=== PATIENT | male | born 1945 | race Caucasian/White ===

== ENCOUNTER → 2017-10-18 08:31 | Outpatient (CLI) | payer MEDICARE, OTHER, SELFPAY ==
[2017-10-18 13:16] LABS: ALB/GLOB Ratio 0.9 RATIO (0.9-2.4); AST(SGOT) 23 U/L (15-37); Alanine Aminotransfer ALT/SGPT 25 U/L (16-61); Albumin, Serum 3.6 g/dL (3.2-5.0); Alkaline Phosphatase 54 U/L (45-117); Anion Gap 9 (5-15); BUN 20 mg/dL (7-18); BUN/Creat Ratio 15.9 RATIO (10-20); Calcium,Total 8.7 mg/dL (8.5-10.1); Chloride 105 mmol/L (98-107); Cholesterol 142 mg/dL (200); Creatinine, Serum 1.26 mg/dL (0.70-1.30); EST Glomerular Filtration Rate 60 mL/min (>60); Est Glom Filt Rate - Afr Amer 73 mL/min (>60); Globulin 3.9 g/dL (2.2-4.2); Glucose 143 mg/dL (74-106); High Density Lipoprotein 47 mg/dL; Potassium 4.4 mmol/L (3.5-5.1); Protein, Total 7.5 g/dL (6.4-8.2); Sodium Level 140 mmol/L (136-145); T4 Free Direct 1.18 ng/dL (0.76-1.46); Thyroid Stim Hormone (TSH) 2.69 uIU/mL (0.358-3.74); Triglycerides 115 mg/dL; Very Low Density Lipoprotein 23 mg/dL (5-40)
== END ==
PROVIDERS: Family Provider Family Medicine; PCP Family Medicine; Visit Provider Family Medicine
DX: E03.9 Hypothyroidism, unspecified (principal)
CPT/HCPCS: 36415; 80053; 80061; 84439; 84443

== ENCOUNTER → 2018-01-18 09:01 | Outpatient (CLI) | payer MEDICARE, OTHER, SELFPAY ==
[2018-01-18 10:42] LABS: AST(SGOT) 22 U/L (15-37); Alanine Aminotransfer ALT/SGPT 25 U/L (16-61); Albumin, Serum 3.7 g/dL (3.2-5.0); Alkaline Phosphatase 55 U/L (45-117); Anion Gap 7 (5-15); BUN 25 mg/dL (7-18); Calcium,Total 8.5 mg/dL (8.5-10.1); Chloride 108 mmol/L (98-107); Cholesterol 140 mg/dL (200); Creatinine, Serum 1.47 mg/dL (0.70-1.30); EST Glomerular Filtration Rate 50 mL/min (>60); Est Glom Filt Rate - Afr Amer 61 mL/min (>60); Globulin 3.7 g/dL (2.2-4.2); Glucose 150 mg/dL (74-106); High Density Lipoprotein 42 mg/dL; Potassium 4.9 mmol/L (3.5-5.1); Protein, Total 7.4 g/dL (6.4-8.2); Sodium Level 142 mmol/L (136-145); Thyroid Stim Hormone (TSH) 3.17 uIU/mL (0.358-3.74); Triglycerides 117 mg/dL; Uric Acid 8.5 mg/dL (3.5-7.2); Very Low Density Lipoprotein 23 mg/dL (5-40)
== END ==
PROVIDERS: Family Provider Family Medicine; PCP Family Medicine; Visit Provider Family Medicine
DX: E78.2 Mixed hyperlipidemia (principal); E03.9 Hypothyroidism, unspecified; M25.50 Pain in unspecified joint
CPT/HCPCS: 36415; 80053; 80061; 84439; 84443; 84550

== ENCOUNTER → 2018-01-25 10:36 | Outpatient (CLI) | payer MEDICARE, OTHER, SELFPAY ==
--- NOTE | 2018-01-25 10:40 | RAD_ITS ---
STUDY: X-RAY CHEST REASON FOR EXAM: Male, 72 years old. Basilar crackles TECHNIQUE: Frontal and lateral views of the chest. COMPARISON: 02/19/2015. FINDINGS: The lungs are clear and expanded. There is no demonstrated pleural abnormality. Normal size heart. Normal mediastinum and kwasi. Normal visualized pulmonary arteries. Normal visualized aortic arch and descending thoracic aorta. There are diffuse degenerative changes of the visualized thoracic spine. Normal visualized ribs, clavicles, and shoulders. There is no demonstrated abnormality of the visualized soft tissue structures of the upper abdomen. RAD/Chest PA and Lateral IMPRESSION: No acute cardiopulmonary disease. Electronically Signed: Bill Gusman DO at 7:44 EDT , Service support ,
== END ==
PROVIDERS: Family Provider Family Medicine; PCP Family Medicine; Visit Provider Family Medicine
DX: R09.89 Other specified symptoms and signs involving the circulatory and respiratory systems (principal)
CPT/HCPCS: 71046

== ENCOUNTER → 2018-02-01 07:31 | Outpatient (CLI) | payer MEDICARE, OTHER, SELFPAY ==
--- NOTE | 2018-02-01 07:32 | ECHOD_ITS ---
Reason For Study: MURMUR Procedure This was a 2D Doppler, Color Flow transthoracic echocardiogram. The exam was of poor technical quality due to body habitus. The study was technically difficult. Contrast injection was performed. Exam performed in department. Left Ventricle Normal LV size. Left ventricular systolic function is normal. The estimated ejection fraction is 60 %. There is evidence of diastolic dysfunction. No regional wall motion abnormalities noted. Right Ventricle Normal RV size. Normal systolic function. Atria The left atrium is mildly enlarged. Normal right atrium. No doppler evidence for ASD. Mitral Valve There is no mitral annular calcification. Normal mitral valve. Trivial mitral valve insufficiency. Tricuspid Valve Normal tricuspid valve. Trivial tricuspid valve insufficiency. Right ventricular systolic pressure estimated to be 27 mmHg. Aortic Valve Trisinus/trileaflet aortic valve. Mild diffuse aortic valve thickening. Mild diffuse aortic valve calcification. Mild aortic stenosis. Pulmonic Valve The pulmonic valve is not well visualized. Trivial pulmonic valve insufficiency. Great Vessels Normal sized aortic root. Pericardium/Pleural No pericardial effusion. Medication 22 gauge I.V. with prn adaptor inserted into right arm. Diluted definity 2.0ml given slow IV push to enhance endocardial definition. MMode/2D Measurements & Calculations LVIDd: 4.1 cm IVSd: 1.0 cm LVOT diam: 2.2 cm LVIDs: 2.7 cm LVPWd: 1.1 cm LVOT area: 3.7 cm2 FS: 34.9 % Ao root diam: 3.6 cm LAV(MOD-bp): 56.4 ml LA A4 area: 20.9 cm2 LAV(MOD-bp) Indexed: 22.2 ml/m2 LAV(MOD-sp2): 47.1 ml LAV(MOD-sp4): 59.3 ml RA A4 area: 16.8 cm2 Doppler Measurements & Calculations MV E max tommy: 98.3 cm/sec Lat Peak E' Tommy: 7.7 cm/sec Med Peak E' Tommy: 8.0 cm/sec MV A max tommy: 110.4 cm/sec E/E' lat: 12.7 E/E' med: 12.3 MV E/A: 0.89 Ao V2 max: 235.8 cm/sec LV V1 max: 103.8 cm/sec SV(LVOT): 86.4 ml Ao max P.2 mmHg LV V1 max P.3 mmHg Ao V2 mean: 150.8 cm/sec LV V1 mean P.2 mmHg Ao mean P.3 mmHg LV V1 mean: 71.4 cm/sec Ao V2 VTI: 43.9 cm LV V1 VTI: 23.5 cm NATI(I,D): 2.0 cm2 NATI(V,D): 1.6 cm2 PA V2 max: 117.6 cm/sec TR max tommy: 271.3 cm/sec TR max P.7 mmHg Interpretation Summary The study was technically difficult. Contrast injection was performed. Left ventricular systolic function is normal. The estimated ejection fraction is 60 %. The left atrium is mildly enlarged. Trivial mitral valve insufficiency. Trivial tricuspid valve insufficiency. Mild aortic stenosis. Trivial pulmonic valve insufficiency. Right ventricular systolic pressure estimated to be 27 mmHg. There is evidence of diastolic dysfunction. Ordering Physician: David Moura Referring Physician: David Moura Performed By: Theresa Bhatia, REYMUNDO, RVT
== END ==
PROVIDERS: Family Provider Family Medicine; PCP Family Medicine; Visit Provider Family Medicine
DX: R01.1 Cardiac murmur, unspecified (principal)
CPT/HCPCS: 93306; Q9957; A4216; C8929

== ENCOUNTER → 2018-07-30 11:54 | Outpatient (CLI) | payer MEDICARE, OTHER, SELFPAY ==
--- NOTE | 2018-07-30 12:04 | RAD_ITS ---
STUDY: X-RAY - LUMBAR SPINE REASON FOR EXAM: Male, 72 years old. Pain in the lower back with history of degenerative disc disease, back surgery in March 2017 TECHNIQUE: 5 view(s) of the lumbar spine were obtained. COMPARISON: 11/07/2016 FINDINGS: Normal lumbar lordosis. There is no substantial scoliosis. There is a normal alignment of the vertebrae. There is diffuse demineralization with multi-level endplate spondylosis. Disc space narrowing at L5-L4 and L5-S1 similar since the prior study. Moderate facet arthropathy at L3-L4, L4-L5 and L5-S1 is also similar. Chronic compression deformity of L1 is stable. There is no demonstrated spondylolysis of the pars interarticulares. There is atherosclerotic calcification of the abdominal aorta without a demonstrated aneurysm. Bilateral hip replacements noted. RAD/L/S Spine Min 4 Views IMPRESSION: 1. Stable exam. 2. Similar degenerative disc disease and facet arthropathy. 3. Stable L1 compression fracture, chronic. Electronically Signed: Dylan Salamanca MD at 19:22 EST , Service support ,
[2018-07-30 14:46] LABS: AST(SGOT) 24 U/L (15-37); Alanine Aminotransfer ALT/SGPT 27 U/L (16-61); Albumin, Serum 3.9 g/dL (3.2-5.0); Alkaline Phosphatase 66 U/L (45-117); Anion Gap 12 (5-15); BUN 18 mg/dL (7-18); BUN/Creat Ratio 13.4 RATIO (10-20); Chloride 105 mmol/L (98-107); Creatinine, Serum 1.34 mg/dL (0.70-1.30); EST Glomerular Filtration Rate 56 mL/min (>60); Est Glom Filt Rate - Afr Amer 67 mL/min (>60); Globulin 3.9 g/dL (2.2-4.2); Glucose 144 mg/dL (74-106); PSA,Total - Annual Screen 1.22 ng/mL (0.00-4.00); Potassium 4.3 mmol/L (3.5-5.1); Protein, Total 7.8 g/dL (6.4-8.2); Sodium Level 140 mmol/L (136-145); Thyroid Stim Hormone (TSH) 3.28 uIU/mL (0.358-3.74)
== END ==
PROVIDERS: Family Provider Family Medicine; PCP Family Medicine; Referring Provider Family Medicine; Visit Provider Family Medicine
DX: M51.36 Other intervertebral disc degeneration, lumbar region (principal); E11.9 Type 2 diabetes mellitus without complications; Z12.5 Encounter for screening for malignant neoplasm of prostate
CPT/HCPCS: 36415; 72110; 80053; 84153; 84443; G0103

== ENCOUNTER → 2018-11-25 09:24 | Outpatient (CLI) | payer MEDICARE, SELFPAY ==
[2018-11-25 12:33] LABS: Absolute Lymphocyte Count 1.18 X10^3/ul (0.83-4.51); Absolute Neutrophil Count 3.5 X10^3/uL (2.0-7.7); Basophil# 0.01 X10^3/uL; Basophil% 0.2 % (0-1); Eosinophil# 0.04 X10^3/uL; Eosinophils% 0.8 % (0-5); Hemoglobin 12.9 g/dl (13.0-16.5); Lymphocyte # 1.18 X10^3/ul (4.0); Lymphocyte % 22.2 % (19-41); Mean Corp Hgb Conc 31.5 g/gl (32-36); Mean Corpuscular Hgb 30.7 pg (27.0-32.0); Mean Corpuscular Volume 97.6 fL (80-94); Mean Platelet Vol. 11.1 fl (6.2-12.0); Monocyte# 0.53 X10^3/uL; Neutrophil # 3.54 X10^3/uL (2.7-7.7); Neutrophil % 66.6 % (47-70); Platelet Count 164 K/mm3 (150-450); RBC Distribution Width CV 14.8 % (11.6-14.6); RBC Distribution Width SD 51.1 fl (35.1-43.9); White Blood Count 5.3 K/mm3 (4.4-11.0)
[2018-11-25 12:51] LABS: POSITIVE COUNT NO; POSITIVE DIFFERENTIAL NO; POSITIVE MORPHOLOGY NO
[2018-11-25 12:53] LABS: ALB/GLOB Ratio 1.1 RATIO (0.9-2.4); AST(SGOT) 24 U/L (15-37); Alanine Aminotransfer ALT/SGPT 22 U/L (16-61); Albumin, Serum 3.9 g/dL (3.2-5.0); Alkaline Phosphatase 58 U/L (45-117); Anion Gap 4 (5-15); BUN 27 mg/dL (7-18); BUN/Creat Ratio 18.5 RATIO (10-20); Calcium,Total 8.8 mg/dL (8.5-10.1); Chloride 109 mmol/L (98-107); Creatinine, Serum 1.46 mg/dL (0.70-1.30); EST Glomerular Filtration Rate 50 mL/min (>60); Est Glom Filt Rate - Afr Amer 61 mL/min (>60); Globulin 3.5 g/dL (2.2-4.2); Glucose 183 mg/dL (74-106); Potassium 4.2 mmol/L (3.5-5.1); Protein, Total 7.4 g/dL (6.4-8.2); Sodium Level 138 mmol/L (136-145); Thyroid Stim Hormone (TSH) 4.06 uIU/mL (0.358-3.74); Uric Acid 8.9 mg/dL (3.5-7.2)
== END ==
PROVIDERS: Family Provider Family Medicine; PCP Family Medicine; Visit Provider Family Medicine
DX: E03.9 Hypothyroidism, unspecified (principal); L74.8 Other eccrine sweat disorders; E11.9 Type 2 diabetes mellitus without complications; M10.9 Gout, unspecified
CPT/HCPCS: 36415; 80053; 84443; 84550; 85025

== ENCOUNTER → 2018-12-19 | Outpatient (CLI) | payer MEDICARE, SELFPAY | END | disposition home or self-care (01) | LOC: LABSPEC 12:30 | PROVIDERS: Family Provider Family Medicine; PCP Family Medicine; Referring Provider Dermatology; Visit Provider Dermatology | DX: L08.9 Local infection of the skin and subcutaneous tissue, unspecified (principal) | CPT/HCPCS: 87070; 87077; 87186; 87205 ==

== ENCOUNTER → 2019-02-11 | Outpatient (CLI) | payer MEDICARE, OTHER, SELFPAY ==
--- NOTE | 2019-02-11 14:28 | RAD_ITS ---
STUDY: X-RAY - UNILATERAL RIBS ( LEFT ) WITH CHEST REASON FOR EXAM: Male, 73 years old. Left-sided chest pain after a fall TECHNIQUE - RIBS: 5 view(s) of the ribs. TECHNIQUE - CHEST: Single PA view of the chest. COMPARISON: None. FINDINGS - RIBS: Acute minimally displaced left lateral seventh eighth and ninth rib fractures without pleural thickening or pneumothorax. FINDINGS - CHEST: Stable elevation of left hemidiaphragm. There are interstitial fibrotic changes of the lungs. There is no demonstrated pleural abnormality. Normal size heart. Normal mediastinum and kwasi. Normal visualized pulmonary arteries. Normal visualized aortic arch and descending thoracic aorta. There are diffuse degenerative changes of the visualized thoracic spine. Normal visualized ribs, clavicles, and shoulders. There is no demonstrated abnormality of the visualized soft tissue structures of the upper abdomen. RAD/Ribs Uni Min 3V w/PA Chest IMPRESSION: RIBS: Acute minimally displaced left lateral seventh, eighth, and ninth rib fractures with pleural thickening or pneumothorax CHEST: Degenerative changes, as described above. No demonstrated acute cardiopulmonary process. Electronically Signed: Tung Mota MD at 12:21 EDT , Service support ,
== END | disposition home or self-care (01) ==
LOC: MTRAD 14:26
PROVIDERS: Family Provider Family Medicine; PCP Family Medicine; Referring Provider Family Medicine; Visit Provider Family Medicine
DX: R07.81 Pleurodynia (principal)
CPT/HCPCS: 71101

== ENCOUNTER → 2019-05-29 | Outpatient (CLI) | payer MEDICARE, SELFPAY ==
[2019-05-29 11:09] LABS: ALB/GLOB Ratio 0.9 RATIO (0.9-2.4); AST(SGOT) 23 U/L (15-37); Alanine Aminotransfer ALT/SGPT 23 U/L (16-61); Albumin, Serum 3.6 g/dL (3.2-5.0); Alkaline Phosphatase 72 U/L (45-117); Anion Gap 9 (5-15); BUN 17 mg/dL (7-18); BUN/Creat Ratio 13.1 RATIO (10-20); Chloride 110 mmol/L (98-107); EST Glomerular Filtration Rate 58 mL/min (>60); Est Glom Filt Rate - Afr Amer 70 mL/min (>60); Globulin 3.9 g/dL (2.2-4.2); Glucose 158 mg/dL (74-106); Potassium 4.2 mmol/L (3.5-5.1); Protein, Total 7.5 g/dL (6.4-8.2); Sodium Level 142 mmol/L (136-145); Thyroid Stim Hormone (TSH) 0.65 uIU/mL (0.358-3.74); Uric Acid 6.2 mg/dL (3.5-7.2)
== END | disposition home or self-care (01) ==
LOC: MFPLAB 09:20
PROVIDERS: Family Provider Family Medicine; PCP Family Medicine; Referring Provider Family Medicine; Visit Provider Family Medicine
DX: E11.9 Type 2 diabetes mellitus without complications (principal); M10.9 Gout, unspecified
CPT/HCPCS: 36415; 80053; 84443; 84550

== ENCOUNTER → 2020-03-22 | Outpatient (CLI) | payer MEDICARE, SELFPAY ==
[2020-03-22 11:09] LABS: ALB/GLOB Ratio 1.1 RATIO (0.9-2.4); AST(SGOT) 23 U/L (15-37); Alanine Aminotransfer ALT/SGPT 23 U/L (16-61); Albumin, Serum 3.8 g/dL (3.2-5.0); Alkaline Phosphatase 57 U/L (45-117); Anion Gap 8 (5-15); BUN 25 mg/dL (7-18); BUN/Creat Ratio 18.1 RATIO (10-20); Calcium,Total 9.1 mg/dL (8.5-10.1); Chloride 109 mmol/L (98-107); Cholesterol 127 mg/dL (200); Creatinine, Serum 1.38 mg/dL (0.70-1.30); EST Glomerular Filtration Rate 54 mL/min (>60); Est Glom Filt Rate - Afr Amer 65 mL/min (>60); Globulin 3.5 g/dL (2.2-4.2); Glucose 153 mg/dL (74-106); High Density Lipoprotein 40 mg/dL; Potassium 4.5 mmol/L (3.5-5.1); Protein, Total 7.3 g/dL (6.4-8.2); Sodium Level 139 mmol/L (136-145); Thyroid Stim Hormone (TSH) 2.27 uIU/mL (0.358-3.74); Triglycerides 123 mg/dL; Uric Acid 8.2 mg/dL (3.5-7.2); Very Low Density Lipoprotein 25 mg/dL (5-40)
== END | disposition home or self-care (01) ==
LOC: MFPLAB 09:18
PROVIDERS: PCP Family Medicine; Referring Provider Family Medicine; Visit Provider Family Medicine
DX: E11.9 Type 2 diabetes mellitus without complications (principal); M10.9 Gout, unspecified
CPT/HCPCS: 36415; 80053; 80061; 84443; 84550

== ENCOUNTER 2020-07-05 08:00 | Outpatient (RCR) | payer MEDICARE, SELFPAY ==
--- NOTE | 2020-06-01 08:46 | HP.PTEVAL_ITS ---
Patient's Visit Information MARIO CHINCHILLA is a 74 year old M referred to Physical Therapy by Dr. 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 Date of Evaluation: 06/01/20 Physical Therapist: Dameon Young, DPT, OCS, CSCS - Visit Plan Frequency: 2x /Week Duration: 4-6 Weeks Plan: 2x/week for 4 weeks for: pool based: HS and quad stretching. NS emphasis. LB ROM emphasizing flexiona dn ext. core/postural/LE strength. Consider progression to I in community pool or land based therapy. - Subjective Has stenosis in LB. Had surgery 3 yrs ago. OK but worsened 6 months ago for no apparent reason. Needs to be cleaned out again but needs to have PT first. Symptoms currently are painful LB to top of B buttocks. Always present. Worse with walking mmore than half way through grocery store. Sit down and it goes away. it is the same as previously yrs ago. Tens unit has not helped in past. Has done water ex on own but not in therapy for back. Sleep is OK, not interrupted but hurts to get up out of bed. Not employed, retired. 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 Limited due to pain as he cannot lift, can ride mower but standing work is challenging. Grandkids are 4 and 7. Basic ADLs are OK, hard to put socks on due to inflexibility and pain. No regular ex. Pt has had a TENS unit in past but gave it away as it was not helpful. at this time does not wish to pursue another one. - Pain LBP Pain Intensity (Out of 10): 5 Pain Intensity Range: 0, 10 Comment: 10 with cutting firewood - Objective Walks stiff but I and safe. Trasnfers slow and painful out of chair and up from lying but I. Very stiff in spine with max limited ext adn pain, flexion is mod limited and tight. SB are mod limited and tight. Old incision visible in LB but healed well. No soft tissue tenderness. reflexes 1/3 patella and achilles B. Sensation LE WNl to gross light touch in LE. HS mod tight with a -45 90/90 test. - SLR. - slump test. quad max tight and knee AROM very limited with pain anterior at knees to 100 R and 90 L(likely due to previous knee replacements.). Strength LE ankles 4+/5, knees ext adn flexion 4/5, hips abd and ext 3+, flexion 4-, adduction 4/5. Steps reciprocal and safe with one railing. Painful after walking 300 feet back to eval room mildly today. - Goals Goal 1:: Put socks on feet without great effort Goal Time Frame: 4-6 Weeks Goal 2:: Patient report a 50% decrease in pain with walking through grocery store to 4/10 at worst. Goal Time Frame: 4-6 Weeks Goal 3:: I appropriate HEP to minimize future problems Goal Time Frame: 4-6 Weeks Goal 4:: Oswestry score of 15 or less. Goal Time Frame: 4-6 Weeks - Rehabilitation Potential Physical Therapy Diagnosis: LBP spondylosis Rehabilitation Potential: Fair - Anticipated Interventions Patient/Client Instruction: Educate patient on: Condition, Plan of Care For the Purpose of:: To decrease pain, To increase ROM, To improve muscle performance and motor function, To increase tolerance to activity/condition/position Therapeutic Exercise to Include: Strength training, Postural training, F lexibilty training, Neuromotor development, In an aquatic setting, Passive ROM, Active ROM, Dynamic Lumbar Stabilization For the Purpose of:: To decrease pain, To increase ROM, To improve muscle performance and motor function, To increase tolerance to activity/condition/position, To improve ability of physical actions for home/community/work/leisure Thank you for the opportunity to evaluate your patient. For Medicare and Medicare HMO plans, please review the plan of care and approve it. It will need to be FAXED BACK to us at [phone] for Medicare purposes. For Medicare only, by signing this I certify the plan of care. Please let me know if there are questions or concerns regarding this plan of care. Physician Signature: Date:
--- NOTE | 2020-07-05 08:24 | HP.PTDCSUM_ITS ---
It has been my pleasure to treat MARIO CHINCHILLA referred by Dr. 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 Discharge Date: 07/05/20 Please see the following information for a summary of their discharge status. Subjective: No improvement. Some days more pain. Stadning still and moving arms made him worse, lunges made worse. Pain over the weekend 4/10 but sat alot which is better on him. No problem at night. To doctor in 3 weeks. Thinks he needs to be cleaned up with surgery. Focussing on NS position without benefit. Wants to send doctor report and be done with PT. Will contact doctor for quicker appointment. LBP Pain Intensity (Out of 10): 4 R foot Pain Intensity (Out of 10): 0 % Improvement: 0 Objective/Function: LB ext very limited and painful, flexion is full, R SB hurts and od limtied, L Sb min limited withotu pain. Walsk hunched over. Goal 1:: Put socks on feet without great effort Goal Progress: Not Progressing Goal 2:: Patient report a 50% decrease in pain with walking through grocery store to 4/10 at worst. Goal Progress: Not Progressing Goal 3:: I appropriate HEP to minimize future problems Goal Progress: Goal Met, not helping Goal 4:: Oswestry score of 15 or less. Goal Progress: Not Progressing Plan: d/c, pt wishes to go back to doctor. sent fax to [facility] for tens unit. Discharge Comments: Pt back to [facility] for next medical step. Ernestina stanton to move appointment up to avoid 3 week wait time. [facility] pool to get Tens unit. If there are questions or concerns regarding this patient's physical therapy, please feel free to call me at [phone]. Thank you for the referral of this patient. Sincerely, Dameon Young, DPT, OCS, CSCS
== END 2020-07-05 19:00 | disposition home or self-care (01) ==
LOC: PT 08:00
PROVIDERS: PCP Family Medicine; Referring Provider Orthopaedic Surgery Orthopaedic Surgery of the Spine; Visit Provider Orthopaedic Surgery Orthopaedic Surgery of the Spine
DX: M47.817 Spondylosis without myelopathy or radiculopathy, lumbosacral region (principal); Z98.890 Other specified postprocedural states
CPT/HCPCS: 97110; 97113; 97161; 97164

== ENCOUNTER → 2020-11-19 10:27 | Outpatient (CLI) | payer MEDICARE, SELFPAY ==
[2020-11-19 12:50] LABS: Vitamin B12 320 pg/mL (211-911)
[2020-11-19 12:57] LABS: ALB/GLOB Ratio 0.9 RATIO (0.9-2.4); AST(SGOT) 16 U/L (15-37); Alanine Aminotransfer ALT/SGPT 27 U/L (16-61); Albumin, Serum 3.5 g/dL (3.2-5.0); Alkaline Phosphatase 88 U/L (45-117); Anion Gap 9 (5-15); BUN 28 mg/dL (7-18); BUN/Creat Ratio 17.9 RATIO (10-20); Calcium,Total 8.9 mg/dL (8.5-10.1); Chloride 108 mmol/L (98-107); Creatinine, Serum 1.56 mg/dL (0.70-1.30); EST Glomerular Filtration Rate 47 mL/min (>60); Est Glom Filt Rate - Afr Amer 56 mL/min (>60); Globulin 3.9 g/dL (2.2-4.2); Glucose 173 mg/dL (74-106); PSA,Total - Annual Screen 1.73 ng/mL (0.00-4.00); Potassium 4.2 mmol/L (3.5-5.1); Protein, Total 7.4 g/dL (6.4-8.2); Sodium Level 140 mmol/L (136-145); Thyroid Stim Hormone (TSH) 1.91 uIU/mL (0.358-3.74); Uric Acid 9.2 mg/dL (3.5-7.2)
== END ==
PROVIDERS: PCP Family Medicine; Referring Provider Family Medicine; Visit Provider Family Medicine
DX: E11.319 Type 2 diabetes mellitus with unspecified diabetic retinopathy without macular edema (principal); N40.0 Benign prostatic hyperplasia without lower urinary tract symptoms; M10.9 Gout, unspecified; Z12.5 Encounter for screening for malignant neoplasm of prostate
CPT/HCPCS: 36415; 80053; 82607; 84153; 84403; 84443; 84550; G0103

== ENCOUNTER 2020-11-23 17:19 | Outpatient (RCR) | payer MEDICARE, SELFPAY ==
[2020-11-23] MEDS: COVID-19 VACC, MRNA(PFIZER)/PF 30 MCG/0.3 ML SYRINGE IM (08:28)
[2020-12-14] MEDS: COVID-19 VACC, MRNA(PFIZER)/PF 30 MCG/0.3 ML SYRINGE IM (08:11)
== END 2021-02-15 23:59 ==
LOC: IMMUN 17:19
PROVIDERS: PCP Family Medicine; Referring Provider Family Medicine; Visit Provider Family Medicine
DX: Z23 Encounter for immunization (principal)
CPT/HCPCS: 0001A; 0002A; 91300

== ENCOUNTER → 2020-12-27 08:48 | Outpatient (CLI) | payer MEDICARE, SELFPAY ==
[2020-12-27 10:11] LABS: Anion Gap 8 (5-15); BUN 26 mg/dL (7-18); BUN/Creat Ratio 18.6 RATIO (10-20); Calcium,Total 9.5 mg/dL (8.5-10.1); Chloride 106 mmol/L (98-107); Cholesterol 139 mg/dL (200); EST Glomerular Filtration Rate 53 mL/min (>60); Est Glom Filt Rate - Afr Amer 64 mL/min (>60); Glucose 114 mg/dL (74-106); High Density Lipoprotein 49 mg/dL; Potassium 4.2 mmol/L (3.5-5.1); Sodium Level 139 mmol/L (136-145); Triglycerides 126 mg/dL; Uric Acid 7.8 mg/dL (3.5-7.2); Very Low Density Lipoprotein 25 mg/dL (5-40)
== END ==
PROVIDERS: PCP Family Medicine; Visit Provider Family Medicine
DX: M10.9 Gout, unspecified (principal)
CPT/HCPCS: 36415; 80048; 80061; 84550

== ENCOUNTER 2020-12-31 05:50 | Day surgery (SDC) | payer MEDICARE, SELFPAY ==
[2020-12-31] VITALS (10 sets, daily range): BP systolic 68–148; BP diastolic 47–74; PULSE 91–104; RESP 16; TEMP 36.3–36.6; O2SAT 39–100; BMI 34.5
--- NOTE | 2020-12-31 06:24 | PCM.HP.STD ---
Problem List (1) Personal history of colonic polyps Status: Acute History of Present Illness Date of Admission: 12/31/20 The patient is a 75 year old M who has a personal history of colon polyps. His most recent colonoscopy was 5 years ago. He has not been exposed to COVID-19 of which he is aware. He denies bright red blood per rectum or melena. He has had some slight intentional weight loss. Past Medical History Allergies allopurinol Allergy (Verified 12/31/20 06:19) Unknown Home Medications: Ambulatory Orders Medication Instructions Recorded aspirin 81 mg chewable tablet 81 mg PO ONCE 09/18/17 metformin 1,000 mg tablet 1,000 mg PO BID 90 Days #180 09/18/17 pioglitazone 45 mg tablet 45 mg PO DAILY 90 Days #90 09/18/17 pravastatin 40 mg tablet 60 mg PO DAILY 90 Days #135 09/18/17 ramipril 5 mg capsule 5 mg PO DAILY 14 Days #14 09/18/17 Colchicine [Colcrys] 0.6 mg PO QHS 12/29/20 Levothyroxine [Synthroid] 75 mcg PO QHS 12/29/20 Linagliptin [Tradjenta] 5 mg PO DAILY 12/29/20 Smoking Status: Never smoker Tobacco Use: Non-smoker Review of Systems Constitutional: Denies: Fever Cardiovascular: Denies: Chest Pain Respiratory: Denies: Cough Gastrointestinal: Denies: Abdominal Pain, Melena Endocrine: Reports: Change in Body Habitus VTE Information - Inpt Only VTE Present on Admission: No Patient Problems: Active and Suspected Problems Personal history of colonic polyps (Acute) - Physical Exam General: Alert, Oriented x3, Cooperative, No apparent distress HEENT: Atraumatic Oral: Moist Mucosa Lungs: Clear to auscultation, Normal air movement Cardiovascular: Regular rate, Regular Rhythm Abdomen: Soft, Non Tender Extremities: No Calf Tenderness Psych/Mental Status: Normal Affect Assessment/Plan All Active Problems Personal history of colonic polyps (Acute) URI, acute (Acute) The patient presents via open access today. I plan to proceed with a colonoscopy with possible biopsy or polypectomy as indicated. He is aware of the technique, benefit, risk, alternatives. He has had an opportunity to ask and have questions answered. We will proceed as noted. Braulio Thomas M.D., F.A.C.S. Procedure Criteria Procedure Type: Elective COVID Risk Discussion: The surgeon/proceduralist and patient have discussed in detail the risk of exposure to and/or potential harm posed by the COVID-19 virus with having a surgery/procedure at this time versus the risk of delaying the surgery/procedure. It is not possible to know either the risk of delaying the surgery or procedure or chance of getting an infection with perfect accuracy, but a joint decision was made between the patient and the surgeon/proceduralist to proceed at this time with the scheduled surgery/procedure as indicated on the consent form.
[2020-12-31] MEDS: Lactated Ringers 1,000 ML 100 ML IV (06:36)
[2020-12-31 06:46] LABS: Bedside Glucose 170 mg/dL (70-110)
[2020-12-31] MEDS: Midazolam 5 MG/ML Syringe (06:58)
--- NOTE | 2020-12-31 07:28 | OP.COLON_ITS ---
Patient Name: Vin Crowe Procedure Date: 12/31/2020 6:52 AM Date of : 1945 Age: 75 Procedure: Colonoscopy Indications: High risk colon cancer surveillance: Personal history of colonic polyps Providers: Braulio Thomas MD Referring MD: Dale Moura Medicines: Midazolam 4.5 mg IV, Meperidine 100 mg IV Patient Profile: Last Colonoscopy: 5 years ago. Complications: No immediate complications. Procedure: Pre-Anesthesia Assessment: - Prior to the procedure, a History and Physical was performed, and patient medications and allergies were reviewed. The patient's tolerance of previous anesthesia was also reviewed. The risks and benefits of the procedure and the sedation options and risks were discussed with the patient. All questions were answered, and informed consent was obtained. Prior Anticoagulants: The patient has taken no previous anticoagulant or antiplatelet agents. ASA Grade Assessment: II - A patient with mild systemic disease. After reviewing the risks and benefits, the patient was deemed in satisfactory condition to undergo the procedure. After I obtained informed consent, the scope was passed under direct vision. Throughout the procedure, the patient's blood pressure, pulse, and oxygen saturations were monitored continuously. The colonoscope was introduced through the anus and advanced to the cecum, identified by appendiceal orifice and ileocecal valve. The colonoscopy was performed without difficulty. The patient tolerated the procedure well. The quality of the bowel preparation was good. The appendiceal orifice was photographed. Moderate Sedation: Moderate (conscious) sedation was personally administered by the endoscopist. The following parameters were monitored: oxygen saturation, heart rate, blood pressure, and response to care. Total physician intraservice time was 15 minutes. Scope In: 7:01:56 AM Scope Withdrawal Time 0 hours 7 minutes 49 seconds Scope Out: 7:22:41 AM Total Procedure Duration Time 0 hours 20 minutes 45 seconds Findings: The digital rectal exam findings include non-thrombosed internal hemorrhoids, internal hemorrhoids that prolapse with straining, but spontaneously regress to the resting position (Grade II) and enlarged prostate. Multiple diverticula were found in the sigmoid colon and descending colon. The exam was otherwise without abnormality. Impression: - Non-thrombosed internal hemorrhoids, internal hemorrhoids that prolapse with straining, but spontaneously regress to the resting position (Grade II) and enlarged prostate found on digital rectal exam. - Diverticulosis in the sigmoid colon and in the descending colon. - The examination was otherwise normal. - No specimens collected. Recommendation: - Discharge patient to home. - Resume previous diet. - Continue present medications. - Repeat colonoscopy in 5 years for surveillance. Procedure Code(s): --- Professional --- G0105, Colorectal cancer screening; colonoscopy on individual at high risk 36924, 59, Moderate sedation services provided by the same physician or other qualified health acute care assistant performing the diagnostic or therapeutic service that the sedation supports, requiring the presence of an independent trained observer to assist in the monitoring of the patient's level of consciousness and physiological status; initial 15 minutes of intraservice time, patient age 5 years or older Diagnosis Code(s): --- Professional --- Z86.010, Personal history of colonic polyps K64.1, Second degree hemorrhoids N40.0, Benign prostatic hyperplasia without lower urinary tract symptoms K57.30, Diverticulosis of large intestine without perforation or abscess without bleeding CPT copyright 2017 [employer]. All rights reserved. The codes documented in this report are preliminary and upon tray filler review may be revised to meet current compliance requirements. Braulio Thomas MD 12/31/2020 7:27:29 AM This report has been signed electronically. Number of Addenda: 0 Note Initiated On: 12/31/2020 6:52 AM
--- NOTE | 2020-12-31 07:28 | OP.CCLET_ITS ---
12/31/2020 Dale Moura [address] [place] [address] Re : Colonoscopy procedure for Vin Crowe Dear Dr. Moura This procedure was performed on Thursday, December 31, 2020. My impressions and recommendations are as follows: Impressions : - Non-thrombosed internal hemorrhoids, internal hemorrhoids that prolapse with straining, but spontaneously regress to the resting position (Grade II) and enlarged prostate found on digital rectal exam. - Diverticulosis in the sigmoid colon and in the descending colon. - The examination was otherwise normal. - No specimens collected. Recommendations : - Discharge patient to home. - Resume previous diet. - Continue present medications. - Repeat colonoscopy in 5 years for surveillance. My findings are described in the full procedure note, which is enclosed. If I can be of further assistance, please feel free to contact me at Doctor phone number(s): Work: . Sincerely, Braulio Thomas MD 12/31/2020 7:27:29 AM This report has been signed electronically.
== END 2020-12-31 08:28 | disposition home or self-care (01) ==
LOC: EN 05:51 → AC 05:52
PROVIDERS: PCP Family Medicine; Referring Provider Family Medicine; Visit Provider Surgery
PROC: 0DJD8ZZ Inspection of Lower Intestinal Tract, Via Natural or Artificial Opening Endoscopic (ICD-10-PCS; CPT 45378; principal; 2020-12-31 06:55)
DX: Z12.11 Encounter for screening for malignant neoplasm of colon (principal); K64.1 Second degree hemorrhoids; K57.30 Diverticulosis of large intestine without perforation or abscess without bleeding; Z86.010 Personal history of colon polyps; Z79.84 Long term (current) use of oral hypoglycemic drugs; Z79.899 Other long term (current) drug therapy
CPT/HCPCS: G0105; 82962; 99152; 99153; J7120

== ENCOUNTER → 2021-05-23 08:10 | Outpatient (CLI) | payer MEDICARE, SELFPAY ==
[2021-05-23 10:51] LABS: Vitamin B12 423 pg/mL (211-911)
[2021-05-23 10:59] LABS: Anion Gap 7 (5-15); BUN 27 mg/dL (7-18); BUN/Creat Ratio 19.4 RATIO (10-20); Calcium,Total 9.7 mg/dL (8.5-10.1); Chloride 108 mmol/L (98-107); Creatinine, Serum 1.39 mg/dL (0.70-1.30); EST Glomerular Filtration Rate 53 mL/min (>60); Est Glom Filt Rate - Afr Amer 64 mL/min (>60); Glucose 164 mg/dL (74-106); Potassium 4.2 mmol/L (3.5-5.1); Sodium Level 140 mmol/L (136-145); Thyroid Stim Hormone (TSH) 2.74 uIU/mL (0.358-3.74); Uric Acid 8.9 mg/dL (3.5-7.2)
== END ==
PROVIDERS: PCP Family Medicine; Referring Provider Family Medicine; Visit Provider Family Medicine
DX: I10 Essential (primary) hypertension (principal); E11.42 Type 2 diabetes mellitus with diabetic polyneuropathy; E53.8 Deficiency of other specified B group vitamins; M10.9 Gout, unspecified
CPT/HCPCS: 36415; 80048; 82607; 84443; 84550

== ENCOUNTER 2022-05-30 08:00 | Outpatient (RCR) | payer MEDICARE, SELFPAY ==
--- NOTE | 2022-05-09 14:44 | HP.PTEVAL_ITS ---
Patient's Visit Information MARIO CHINCHILLA is a 76 year old M referred to Physical Therapy by Dr. Juan David Topete MD with a diagnosis of S/P LAMINECTOMY L3-S1 WITH SPINAL STENOSIS FUSION ,STENOSIS LUMBAR REGION. Date of Evaluation: 05/09/22 Physical Therapist: Bryson Godinez, PT, Cert MDT, OCS - Visit Plan Frequency: 2x /Week Duration: 4 Weeks Plan: PT INTERVENTIONS DLS ,POSTURAL EX'S ,LE FLEXABILITY ,BLE STRENGTHENING ,GRADED LUMBAR ROM AND ENDURANCE PROGRAM - Subjective This 76 y/o male presents to physical therapy with lumbar laminectomy and fusion. Patient underwent s/p laminectomy L3-S1 with fusion L3-L5 in March 28 at [facility] done by DR Topete. Prior to surgery patient had symmetrical lumbar pain with walking/standing. Patient has h/o lumbar laminectomy ~ 4years ago and 2nd surgery ~ 2 years ago had L2-3 fusion. In the past ,prior PT. Patient wore lumbar brace 2 weeks post surgery no BLT ~ 5 #. Currently no symptoms ,but aggravating factors walking ,stand 10mins unable to bend or lift. Alleviating factors rest no MEDS. Coughing/sneezing -. Bowel/bladder -. Denies paresthesia/tingling legs. Patient sleeping good ,no abnormal back pain. Patient condition affects QOL and function. Walking less than 5 min 100 yards .Patient also has weakness left hip flexion. PMH : bilateral TKR AND THR. SOCIAL: . VOCATION: retired - Pain Bilateral Back Pain Intensity (Out of 10): 8 Pain Intensity Range: 10 Comment: walking /standing - Objective POSTURE: mild forward posture. GAIT: reciprocal pattern slow tyrone mild forward posture. NEURO: denies paresthesia/tingling L3-4,L4-5 ,L5-S1 1/3. SYMMETRIES: align. FLEXABLITY: hamstrings min tight. MMT: quads/hams 4/5 ,hip flexion right 4-/5 ,left peak force 0 and ankle 4/5. LUMBAR ROM: flexion mod loss ,extension mod/severe loss ,side glides min loss - Special Tests L/S Slump test left side: Negative L/S Slump test right side: Negative L/S Left Straight Leg Raise: Negative L/S Right Straight Leg Raise: Negative - Balance/Special Test Scores Oswestry Low Back Score: 28 - Goals Goal 1:: Patient to be I with HEP Goal Time Frame: 4-6 Weeks Goal 2:: Patient to demonstrate 50% improvement function walking and standing Goal Time Frame: 4-6 Weeks Goal 3:: Patient to improve lumbar ROM for function of recovery to put on shoes Goal Time Frame: 4-6 Weeks Goal 4:: Patient to improve back oswestry by 5 points to improve QOL and function Goal Time Frame: 4-6 Weeks Goal 5:: Patient be able to walk > 10 min with less pain to improve function Goal Time Frame: 4-6 Weeks - Rehabilitation Potential Physical Therapy Diagnosis: This patient has had lumbar fusion and with h/o stenosis and spondylolisthesis and comorbities with bilateral TKR ,THR with current impairments pain mainly with standing walking < 5 mins with pain during positioning and movement thus benefit from skilled PT Rehabilitation Potential: Good - Anticipated Interventions Patient/Client Instruction: Educate patient on: Condition, Plan of Care For the Purpose of:: To decrease pain, To increase ROM, To improve muscle performance and motor function, To improve ability to perform ADL's, To increase tolerance to activity/condition/position, To improve ability of physical actions for home/community/work/leisure, To improve gait and locomotor functions, To improve health of tissue, To decrease soft tissue restriction, To increase flexibility/ROM, To prevent re-injury, To improve tolerance to ADL's Therapeutic Exercise to Include: Strength training, Endurance training, Balance training, Body mechanics, Postural training, Flexibilty training, Active ROM, Dynamic Lumbar Stabilization Thank you for the opportunity to evaluate your patient. For Medicare and Medicare HMO plans, please review the plan of care and approve it. It will need to be FAXED BACK to us at [phone] for Medicare purposes. For Medicare only, by signing this I certify the plan of care. Please let me know if there are questions or concerns regarding this plan of care. Physician Signature: Date:
--- NOTE | 2022-08-29 10:11 | HP.PT.NRP ---
MARIO CHINCHILLA was seen in my office for initial evaluation on 05/09/22. The following Plan of Care was established for this patient: Initial Frequency: 2x /Week Initial Duration: 4 Weeks Patient/Client Instruction: Educate patient on: Condition, Plan of Care For the Purpose of:: To decrease pain, To increase ROM, To improve muscle performance and motor function, To improve ability to perform ADL's, To increase tolerance to activity/condition/position, To improve ability of physical actions for home/community/work/leisure, To improve gait and locomotor functions, To improve health of tissue, To decrease soft tissue restriction, To increase flexibility/ROM, To prevent re-injury, To improve tolerance to ADL's Therapeutic Exercise to Include: Strength training, Endurance training, Balance training, Body mechanics, Postural training, Flexibilty training, Active ROM, Dynamic Lumbar Stabilization This patient was last seen in our office . Pertinent comments regarding their Physical therapy will appear below: Patient was seen for PT for s/p lumbar surgery for HEP ,postural ex's and DLS pain is min changed ,RTD At this point I will be discontinuing this patient from physical therapy. I would be happy to see this patient again in the future if found appropriate by the physician. Thank you! Bryson Godinez, PT, Cert MDT, OCS Balance/Gait/Functional tests - Balance/Special Test Scores Oswestry Low Back Score: 21
== END 2022-05-30 19:00 | disposition home or self-care (01) ==
LOC: PT 08:00
PROVIDERS: PCP Family Medicine; Referring Provider Orthopaedic Surgery Orthopaedic Surgery of the Spine; Visit Provider Orthopaedic Surgery Orthopaedic Surgery of the Spine
DX: M48.062 Spinal stenosis, lumbar region with neurogenic claudication (principal); M43.16 Spondylolisthesis, lumbar region; Z98.1 Arthrodesis status
CPT/HCPCS: 97110; 97162

== ENCOUNTER → 2022-07-03 | Outpatient (CLI) | payer MEDICARE, SELFPAY ==
[2022-07-03 10:46] LABS: Vitamin B12 822 pg/mL (211-911)
[2022-07-03 11:29] LABS: AST(SGOT) 36 U/L (15-37); Alanine Aminotransfer ALT/SGPT 25 U/L (16-61); Albumin, Serum 3.9 g/dL (3.2-5.0); Alkaline Phosphatase 65 U/L (45-117); Anion Gap 8 (5-15); BUN 31 mg/dL (7-18); BUN/Creat Ratio 17.5 RATIO (10-20); Calcium,Total 9.3 mg/dL (8.5-10.1); Chloride 110 mmol/L (98-107); Cholesterol 138 mg/dL (200); Creatinine, Serum 1.77 mg/dL (0.70-1.30); EST Glomerular Filtration Rate 40 mL/min (>60); Est Glom Filt Rate - Afr Amer 48 mL/min (>60); Globulin 3.8 g/dL (2.2-4.2); Glucose 173 mg/dL (74-106); High Density Lipoprotein 50 mg/dL; PSA,Total - Annual Screen 1.79 ng/mL (0.00-4.00); Potassium 4.4 mmol/L (3.5-5.1); Protein, Total 7.7 g/dL (6.4-8.2); Sodium Level 141 mmol/L (136-145); Thyroid Stim Hormone (TSH) 2.78 uIU/mL (0.358-3.74); Triglycerides 101 mg/dL; Uric Acid 9.2 mg/dL (3.5-7.2); Very Low Density Lipoprotein 20 mg/dL (5-40)
== END | disposition home or self-care (01) ==
LOC: MFPLAB 08:25
PROVIDERS: PCP Family Medicine; Visit Provider Family Medicine
DX: E11.42 Type 2 diabetes mellitus with diabetic polyneuropathy (principal); Z12.5 Encounter for screening for malignant neoplasm of prostate; E03.9 Hypothyroidism, unspecified; M10.9 Gout, unspecified
CPT/HCPCS: 36415; 80053; 80061; 82607; 84153; 84443; 84550; G0103

== ENCOUNTER → 2022-09-28 | Outpatient (CLI) | payer MEDICARE, SELFPAY ==
[2022-09-28 10:43] LABS: Anion Gap 8 (5-15); BUN 28 mg/dL (7-18); BUN/Creat Ratio 17.1 RATIO (10-20); Calcium,Total 9.1 mg/dL (8.5-10.1); Chloride 108 mmol/L (98-107); Creatinine, Serum 1.64 mg/dL (0.70-1.30); EST Glomerular Filtration Rate 44 mL/min (>60); Est Glom Filt Rate - Afr Amer 53 mL/min (>60); Glucose 187 mg/dL (74-106); Sodium Level 140 mmol/L (136-145)
== END | disposition home or self-care (01) ==
LOC: MFPLAB 08:26
PROVIDERS: PCP Family Medicine; Visit Provider Family Medicine
DX: N18.30 Chronic kidney disease, stage 3 unspecified (principal); E11.22 Type 2 diabetes mellitus with diabetic chronic kidney disease
CPT/HCPCS: 36415; 80048

== ENCOUNTER → 2023-01-11 | Outpatient (CLI) | payer MEDICARE, SELFPAY ==
[2023-01-11 11:25] LABS: ALB/GLOB Ratio 1.1 RATIO (0.9-2.4); AST(SGOT) 27 U/L (15-37); Alanine Aminotransfer ALT/SGPT 24 U/L (16-61); Albumin, Serum 3.7 g/dL (3.2-5.0); Alkaline Phosphatase 65 U/L (45-117); Anion Gap 9 (5-15); BUN 21 mg/dL (7-18); BUN/Creat Ratio 13.5 RATIO (10-20); Calcium,Total 8.8 mg/dL (8.5-10.1); Chloride 107 mmol/L (98-107); Cholesterol 148 mg/dL (200); Creatinine, Serum 1.55 mg/dL (0.70-1.30); EST Glomerular Filtration Rate 47 mL/min (>60); Est Glom Filt Rate - Afr Amer 56 mL/min (>60); Globulin 3.4 g/dL (2.2-4.2); Glucose 215 mg/dL (74-106); High Density Lipoprotein 48 mg/dL; Potassium 4.1 mmol/L (3.5-5.1); Protein, Total 7.1 g/dL (6.4-8.2); Sodium Level 139 mmol/L (136-145); Thyroid Stim Hormone (TSH) 2.95 uIU/mL (0.358-3.74); Triglycerides 125 mg/dL; Uric Acid 8.1 mg/dL (3.5-7.2); Very Low Density Lipoprotein 25 mg/dL (5-40)
== END | disposition home or self-care (01) ==
LOC: MFPLAB 08:33
PROVIDERS: PCP Family Medicine; Referring Provider Family Medicine; Visit Provider Family Medicine
DX: E11.42 Type 2 diabetes mellitus with diabetic polyneuropathy (principal); E11.69 Type 2 diabetes mellitus with other specified complication; E03.9 Hypothyroidism, unspecified; M10.9 Gout, unspecified
CPT/HCPCS: 36415; 80053; 80061; 84443; 84550

== ENCOUNTER → 2023-07-31 | Outpatient (CLI) | payer MEDICARE, SELFPAY ==
[2023-07-31 10:48] LABS: PTHIN 64.5 pg/mL (18.4-80.1)
[2023-07-31 11:06] LABS: ALB/GLOB Ratio 1.1 RATIO (0.9-2.4); AST(SGOT) 23 U/L (15-37); Alanine Aminotransfer ALT/SGPT 18 U/L (16-61); Albumin, Serum 3.9 g/dL (3.2-5.0); Alkaline Phosphatase 64 U/L (45-117); Anion Gap 10 (5-15); BUN 25 mg/dL (7-18); BUN/Creat Ratio 14.7 RATIO (10-20); Chloride 108 mmol/L (98-107); EST Glomerular Filtration Rate 42 mL/min (>60); Est Glom Filt Rate - Afr Amer 51 mL/min (>60); Globulin 3.6 g/dL (2.2-4.2); Glucose 206 mg/dL (74-106); PSA,Total- Diagnostic 1.93 ng/mL (0.0-4.0); Potassium 4.1 mmol/L (3.5-5.1); Protein, Total 7.5 g/dL (6.4-8.2); Sodium Level 140 mmol/L (136-145)
[2023-07-31 11:33] LABS: Hepatitis C Antibody Non-Reactive (Nonreactive)
== END | disposition home or self-care (01) ==
LOC: MFPLAB 08:31
PROVIDERS: PCP Family Medicine; Visit Provider Family Medicine
DX: E03.9 Hypothyroidism, unspecified (principal); E11.22 Type 2 diabetes mellitus with diabetic chronic kidney disease; E11.42 Type 2 diabetes mellitus with diabetic polyneuropathy; N40.0 Benign prostatic hyperplasia without lower urinary tract symptoms
CPT/HCPCS: 36415; 80053; 83970; 84153; 84443; 86803

== ENCOUNTER → 2023-11-01 | Outpatient (CLI) | payer MEDICARE, SELFPAY ==
--- OUTSIDE RECORDS SUMMARY | 2023-11-01 08:40 | XMS RPT_ITS | CCD ---
Author Name Unknown Address [address] [place] [address] Organization [facility] Care Team Providers Care Release Of Information Specialist Name Role Phone Cal Rene Unavailable Unavailable PROVIDER, UNKNOWN Unavailable Unavailable Keyonna Moura Unavailable Unavailable Sweta Enamorado Unavailable Unavailable Sha Joaquin Unavailable Unavailable Lucas, Jamesetta Unavailable Unavailable Lucas, Jamesetta Unavailable Unavailable Lucas, Jamesetta Unavailable Unavailable Keyonna Moura Unavailable Unavail able Lucas, Jamesami Unavailable Unavailable Lucas, Jamesetta Unavailable Unavailable Lucas, Jamesetta Unavailable Unavailable Kapil Saha MD Unavailable Susan Lott PA-C Unavailable Keyonna Moura MD Primary Care Provider KEYONNA MOURA Primary Care Unavailabl e KEYONNA MOURA Primary Care Unavailabl e O'CHENG, CHRIS Attending Unavailable TALIWAL, JUAN DAVID Referring Unavailable KEYONNA MOURA Primary Care Unavailabl e O'CHENG, CHRIS Attending Unavailable O'CHENG, CHRIS Referring Unavailable KEYONNA MOURA Primary Care Unavailabl e O'CHENG, CHRIS Referring Unavailable KEYONNA MOURA Primary Care Unavailabl e O'CHENG, CHRIS Attending Unavailable TALIWAL, JUAN DAVID Referring Unavailable KEYONNA MOURA Primary Care Unavailabl e TALIWAL, JUAN DAVID Referring Unavailable KEYONNA MOURA Primary Care Unavailabl e Allergies Allergy Classification Reported Allergen(s) Allergy Type Date of Onset Reaction(s) Facility (3 sources) Allopurinol Drug Allergy 01-16-2018 swelling [facility] Work Phone: (6 sources) Allopurinol; Translations: [ALLOPURINOL] Drug Allergy 07-22-2015 [facility] Medications Completed/Discontinued Medications Medication Drug Class(es) Dates Sig (Normalized) Sig (Original) ADULT ASPIRIN EC LOW STRENGTH 81 MG ORAL TABLET DELAYED RELEASE (3 sources) Start: 01-16-2018 take 1 tablet by mouth once daily ADULT ASPIRIN EC LOW STRENGTH 81 MG ORAL TABLET DELAYED RELEASE 1 tablet once a day ADULT ASPIRIN EC LOW STRENGTH 81 MG ORAL TABLET DELAYED RELEASE Veronica Krishna RN Problems Active Problems Problem Classification Problem Date Documented Date Episodic/Chronic Other connective tissue disease (3 sources) Trigger thumb, right thumb; Translations: [Trigger finger (acquired)] Onset: 11-10-2021 11-10-2021 Episodic Other connective tissue disease (3 sources) Palmar fascial fibromatosis [Dupuytren]; Translations: [Contracture of palmar fascia] Onset: 11-10-2021 11-10-2021 Episodic Other connective tissue disease (13 sources) H/O Spinal surgery; Translations: [Arthrodesis status] Onset: 03-29-2018 11-17-2020 Episodic Other connective tissue disease (1 source) Arthrodesis status; Translations: [S/P laminectomy with spinal fusion] Onset: 06-20-2023 Episodic Other fractures (2 sources) Unspecified fracture of first lumbar vertebra, initial encounter for closed fracture; Translations: [Unsp fracture of first lumbar vertebra, init for clos fx] Onset: 01-31-2018 Episodic Spondylosis; intervertebral disc disorders; other back problems (5 sources) Other intervertebral disc degeneration, lumbar region; Translations: [Lumbosacral spondylosis without myelopathy] Onset: 01-31-2018 05-12-2020 Chronic Spondylosis; intervertebral disc disorders; other back problems (17 sources) Spinal stenosis of lumbar region; Translations: [Spinal stenosis, lumbar region with neurogenic claudication] Onset: 01-16-2018 09-27-2020 Episodic Unclassified (1 source) Unknown / UNK(Unknown) Onset: 04-13-2017 Past or Other Problems Problem Classification Problem Date Documented Da te Episodic/Chronic Other acquired deformities (3 sources) Spondylolisthesis; Translations: [Spondylolisthesis , lumbar region] Onset: 09-27-2020 09-27-2020 Episodic Other screening for suspected conditions (not mental disorders or infectious disease) (5 sources) Patient encounter status; Translations: [Encounter for screening for malignant neoplasm of intestinal tract, unspecified] Onset: 06-21-2015 06-21-2015 Episodic Unclassified (1 source) NEW CONSULT Onset: 04-13-2017 Unclassified (3 sources) Problem Results Test Name Value Interpretation Reference Range Facil ity Vital Signs Date Time Vital Sign Value Performing Clinician Facility NEGATED: Highlighted [id number] 09:22-0400 Body height 186.69 cm Veronica Krishna RN [facility] Work Phone: NEGATED: Highlighted [id number] 09:22-0400 Body height 187 cm Veronica Krishna RN [facility] Work Phone: NEGATED: Highlighted [id number] 09:22-0400 Body mass index (BMI) [Ratio] 36.18 kg/m2 Veronica Krishna RN [facility] Work Phone: NEGATED: Highlighted [id number] 09:22-0400 Body weight 125.65 kg Veronica Krishna RN [facility] Work Phone: NEGATED: Highlighted [id number] 09:22-0400 Body weight 126 kg Veronica Krishna RN [facility] Work Phone: NEGATED: Highlighted [id number] 14:54-0400 Body height 186.69 cm Arcelia Ziats AT [facility] Work Phone: NEGATED: Highlighted [id number] 14:54-0400 Body height 187 cm Arcelia Ziats AT [facility] Work Phone: NEGATED: Highlighted [id number] 14:54-0400 Body mass index (BMI) [Ratio] 36.18 kg/m2 Arcelia Ziats AT [facility] Work Phone: NEGATED: Highlighted [id number] 14:54-0400 Body weight 125.65 kg Arcelia Bahena AT [facility] Work Phone: NEGATED: Highlighted [id number] 14:54-0400 Body weight 126 kg Arcelia Bahena AT [facility] Work Phone: NEGATED: Highlighted [id number] 09:06-0500 Body height 186.69 cm Nadege Blackert AUDIOPROSTHOLOGIST [facility] Work Phone: NEGATED: Highlighted [id number] 09:06-0500 Body height 187 cm Nadege Blackert AUDIOPROSTHOLOGIST [facility] Work Phone: NEGATED: Highlighted [id number] 09:06-0500 Body mass index (BMI) [Ratio] 36.18 kg/m2 Nadege Blackert AUDIOPROSTHOLOGIST [facility] Work Phone: NEGATED: Highlighted [id number] 09:06-0500 Body weight 125.65 kg Nadege Blackert AUDIOPROSTHOLOGIST [facility] Work Phone: NEGATED: Highlighted [id number] 09:06-0500 Body weight 126 kg Nadege Blackert AUDIOPROSTHOLOGIST [facility] Work Phone: Encounters Encounter Date Encounter Type Care Provider Facility Start: 07-19-2023 End: 07-19-2023 ambulatory CHRIS SKELTON Facility:[facility] Start: 07-16-2023 End: 07-16-2023 ambulatory Farhana Washington SQL PROGRAMMER [facility] Procedures Date Procedure Procedure Detail Performing Clinician Start: 12-20-2021 End: 12-20-2021 BP scrn no perf at interval Susan Lott PA-C Work Phone: Start: 12-20-2021 End: 12-20-2021 Calc BMI out nrm niya nof/u Susan B Lott PA-C Work Phone: Start: 12-20-2021 End: 12-20-2021 Current tobacco non-user cad cap copd pv dm Susan B Lott PA-C Work Phone: Start: 12-20-2021 End: 12-20-2021 Docrev cur meds by addis jim Davis B Lott PA-C Work Phone: Start: 12-20-2021 End: 12-20-2021 Pain doc pos and plan Susan Ellen GellerLott P A-C Work Phone: Start: 12-20-2021 End: 12-20-2021 Patient encounter procedure Susan Ellen Lott PA-C Work Phone: Start: 12-13-2021 End: 12-13-2021 Documentation of current medications Veronica Krishna RN Start: 12-06-2021 End: 12-06-2021 BP scrn no perf at interval Kapil Saha MD Work Phone: Start: 12-06-2021 End: 12-06-2021 Calc BMI out nrm niya nof/u Kapil Saha MD Work Phone: Start: 12-06-2021 End: 12-06-2021 Current tobacco non-user cad cap copd pv dm Kapil Saha MD Work Phone: Start: 12-06-2021 End: 12-06-2021 Docrev cur meds by [facility] jim Saha MD Work Phone: Start: 12-06-2021 End: 12-06-2021 Pain doc pos and plan Kapil Saha MD Work Phone: Start: 12-06-2021 End: 12-06-2021 Patient encounter procedure Kapil Saha MD Work Phone: Start: 11-10-2021 End: 11-10-2021 BP scrn no perf at interval Kapil Saha MD Work Phone: Start: 11-10-2021 End: 11-10-2021 Calc BMI out nrm niya nof/u Kapil Saha MD Work Phone: Start: 11-10-2021 End: 11-10-2021 Current tobacco non-user cad cap copd pv dm Kapil Saha MD Work Phone: Start: 11-10-2021 End: 11-10-2021 Docrev cur meds by brittani Saha MD Work Phone: Start: 11-10-2021 End: 11-10-2021 Pain doc pos and plan Kapil Saha MD Work Phone: Start: 11-10-2021 End: 11-10-2021 Patient encounter procedure Kapil Saha MD Work Phone: NEGATED: Highlighted rowStart: 12-20-2021 End: 12-20-2021 Documentation of current medications Veronica Krishna RN NEGATED: Highlighted rowStart: 12-06-2021 End: 12-06-2021 Documentation of current medications Arcelia Bahena AT NEGATED: Highlighted rowStart: 11-10-2021 End: 11-10-2021 Documentation of current medications Nadege Brown LPN Plan of Treatment Date Care Activity Detail Author Start: 05-11-2023 Covid-19 Vaccine () Covid-19 Vaccine () [facility] Start: 09-10-2022 Advance Directive Discussion Advance Directive Discussion [facility] Start: 09-10-2022 Depression Assessment Depression Assessment [facility] Start: 12-21-2021 End: 12-21-2021 Patient encounter procedure Appointment [facility] Work Phone: Start: 12-20-2021 End: 12-20-2021 Patient encounter procedure Appointment [facility] Work Phone: Start: 12-13-2021 End: 12-13-2021 Patient encounter procedure Appointment [facility] Work Phone: Start: 12-09-2021 End: 12-09-2021 Patient encounter procedure Appointment [facility] Work Phone: Start: 12-06-2021 End: 12-06-2021 Patient encounter procedure Appointment [facility] Work Phone: Start: 11-10-2021 End: 11-10-2021 Patient encounter procedure Appointment [facility] Work Phone: Start: 11-10-2021 End: 11-10-2021 Radex hand minimum 3 views [facility] Work Phone: Start: 11-14-2011 Pneumococcal Vaccine: 65+ (1 - PCV) Pneumococcal Vaccine: 65+ (1 - PCV) [facility] Start: 2006 RSV Vaccine (1 - 1-dose 60+ series) RSV Vaccine (1 - 1-dose 60+ series) [facility] Start: 1996 Shingrix Vaccine (1 of 2) Shingrix Vaccine (1 of 2) [facility] Start: 11-14-1991 Diabetes Screening Diabetes Screening [facility] Start: 1965 Urine microalbumin profile DTaP,Tdap,Td Vaccine (1 - Tdap) [facility] Start: 1964 Hepatitis C Screening Hepatitis C Screening [facility] Payers Date Payer Category Payer Medicare 2018 Medicare [id number] 2006 Medicare [id number] Social History Date Type Detail Facility Start: 11-10-2021 End: 12-20-2021 Assertion Unknown if ever smoked [facility] Work Phone: Start: 06-21-2015 Tobacco smoking stat us NHIS Never smoked tobacco [facility] Start: 11-10-2016 Alcohol intake Current non-dr superintendent power of alcohol (finding) [facility] Start: 06-20-2023 End: 07-16-2023 History of Social function [facility] Start: 06-20-2023 End: 07-16-2023 Area Deprivation Index [facility] National Score (1-10 0), lower number is lower risk 65 [facility] Start: 1945 Sex Assigned At Not on file C [facility] Clinical Notes 12-06-2021 to 07-19-2023 Chris Skelton, PT - 07/16/2023 8:01 AM Sterling Onofre, PT - 07/09/2023 8:01 AM Chris Ramires, PT - 07/06/2023 7:59 AM Chris Ramires, PT - 07/03/2023 11:07 AM EDT Note Date & Type Note Facility 07-19-2023 Note HNO ID: [id number] Author: Chris Skelton PT Service: ? Author Type: Physical Therapist Type: Progress Notes Filed: 07/19/2023 8:28 AM Note Text: Episode Visit Count: 8 Therapist That Will Accept/Oversee The Plan Of Care: Chris Skelton Start of Care Date: 06/20/23 Onset Date: 06/15/23 Plan of Care Certification Date: 06/20/23 Next Certification Due Date: 07/25/23 REHABILITATION AND SPORTS THERAPY PHYSICAL THERAPY DISCONTINUANCE OF CARE PLAN OF CARE UPDATE: Assessment: Vin Crowe is discontinued from Physical Therapy services due to maximal benefit.. Patient was seen for 8 visits from Start of Care Date: 06/20/23 to 07/19/2023 and treatment included: Therapeutic exercise and Self-mcc management. Goals for Episode of Care: created on 06/20/23 through 08/01/23 Goals updated on 07/19/2023. [place] in home exercise program. -- MET Patient will decrease pain rating by 2 points to meet minimal clinical important difference for numeric pain rating scale. -- NOT MET Perform sit to stand and bed transfers with decreased report of symptoms/pain in 6 weeks. -- NOT MET Perform 10 min of standing activities with decreased pain. -- NOT MET maybe 5 minutes. Patient Goals: pt. wants to reduce pain -- NOT MET SUBJECTIVE: No change at all, it's just sore. I get my first pain shot on the . Pt. is only able to tolerate 5 min of standing or walking.. Pain: Pain Pain Level: ( it's just sore. ) Pain Location: Back Frequency: Intermittent Post Treatment Pain Post Treatment Pain Level: 0 Post Treatment Pain Location: Back PROMIS Scales Higher is Better 07/19/2023 06/20/2023 Phys Func - Score 39 (moderate dysfunction) 46 (within normal limits) Phys Func - Percentile 14 % 34 % Self-Eff Symptom - Score 35 (Low) 37 (Low) Self-Eff Symptom - Percentile 7 % 10 % T-scores: mean of general population = 50. 5 points is clinically meaningfully difference Percentiles provide an indication of how the patient's score ranks in relation to the general population. Higher percentile rankings indicate better function/quality of life. 50th percentile is the average of the general population and indicates half of respondents had a worse score. OBJECTIVE MEASURES WITH LEVEL OF FUNCTION: Lumbar Spine AROM Lumbar Flexion: Normal Lumbar Extension: Major limitation, Increased pain Lumbar R Side Rutledge: Normal Lumbar L Side [place]ledge: Normal Lumbar R Side-Bend: Moderate limitation Lumbar L Side-Bend: Moderate limitation Lumbar R Rotation: Normal Lumbar L Rotation: Normal TREATMENT: Therapeutic Exercise: 1: seated lumbar flexion 2x10 2: hook lying KTC 3x30 sec each side 3: Hooklying TA activation with push into physioball 2x5, 10 sec hold 4: hook lying BLE 55 cm physioball roll outs 2x20 5: Hooklying TA activation with push into physioball 1x10 6: lumbar flexion, extension, side flexion, side glide each side, rotation each side 1x each (pt. only reports pain with extension) 7: hook lying pelvic rotations 2x20 Skilled Intervention: Patient was educated in proper exercise technique and purpose for exercises. Correct performance of therapeutic exercises was facilitated with verbal, visual, and tactile cuing. Patient education as noted. Billing Therapeutic Exercise Treatment Minutes: 27 Skilled Treatment Time Minutes (timed and untimed codes): 27 Total Session Time (minutes): 27 Session Start Time : 0800 Session Stop Time : 826 Chris Skelton PT [facility] 07-16-2023 Note HNO ID: [id number] Author: Chris Skelton PT Service: ? Author Type: Physical Therapist Type: Progress Notes Filed: 07/16/2023 11:02 AM Note Text: Episode Visit Count: 7 Therapist That Will Accept/Oversee The Plan Of Care: Chris Skelton Start of Care Date: 06/20/23 Onset Date: 06/15/23 Plan of Care Certification Date: 06/20/23 Next Certification Due Date: 07/25/23 Patient Identified by Name and Date of : Yes REHABILITATION AND SPORTS THERAPY PHYSICAL THERAPY TREATMENT NOTE ASSESSMENT: Vin Crowe tolerated the session with fatigue and expected muscle soreness. He demonstrated difficulty with standing Pallof's press. The patient will continue to benefit from ongoing skilled physical therapy to progress toward set goals. PLAN FOR NEXT VISIT: PN SUBJECTIVE: Pt reports that his back is still feeling the same, no change in symptoms. Pt reports that after his last session, he could only making it to main lobby befre needing to sit, usually he can make it to the car. Pt states that the exercises don't seem to be helping, but are not making his symptoms worse. Pain: Pain Pain Level: 0 Pain Location: Back Frequency: Intermittent Post Treatment Pain Post Treatment Pain Level: 0 Post Treatment Pain Location: Back OBJECTIVE MEASURES WITH LEVEL OF FUNCTION: Unable to stand fully erect with Pallof's press. TREATMENT: Therapeutic Exercise: 1: SciFit seat 14, level 2.0, 5 min, 1:1 throughout, subjective collected 2: Seated repeated lumbar flexion 2x10 3: seated TA activation with push into physioball 2x10 4: Standing Pallof's press with GTB 1x10 each direction. (rest in between each side) 5: Seated TA activation wtih BLE alt marching 3x10 B Skilled Intervention: Patient was educated in proper exercise technique and purpose for exercises. Skilled judgment was used in selection of appropriate interventions. Correct performance of therapeutic exercises was facilitated with verbal and visual cuing. Billing Therapeutic Exercise Treatment Minutes: 38 Skilled Treatment Time Minutes (timed and untimed codes): 38 Total Session Time (minutes): 38 Session Start Time : 0758 Session Stop Time : 08 Farhana Washington, SEVERO Skelton, PT [facility] 07-16-2023 History of Present illness Narrative Episode Visit Count: 7 Therapist That Will Accept/Oversee The Plan Of Care: Chris Skelton Start of Care Date: 06/20/23 Onset Date: 06/15/23 Plan of Care Certification Date: 06/20/23 Next Certification Due Date: 07/25/23 Patient Identified by Name and Date of : Yes REHABILITATION AND SPORTS THERAPY PHYSICAL THERAPY TREATMENT NOTE ASSESSMENT: Vin Crowe tolerated the session with fatigue and expected muscle soreness. He demonstrated difficulty with standing Pallof's press. The patient will continue to benefit from ongoing skilled physical therapy to progress toward set goals. PLAN FOR NEXT VISIT: PN SUBJECTIVE: Pt reports that his back is still feeling the same, no change in symptoms. Pt reports that after his last session, he could only making it to main Physihome befre needing to sit, usually he can make it to the car. Pt states that the exercises don't seem to be helping, but are not making his symptoms worse. Pain: Pain Pain Level: 0 Pain Location: Back Frequency: Intermittent Post Treatment Pain Post Treatment Pain Level: 0 Post Treatment Pain Location: Back OBJECTIVE MEASURES WITH LEVEL OF FUNCTION: Unable to stand fully erect with Pallof's press. TREATMENT: Therapeutic Exercise: 1: SciFit seat 14, level 2.0, 5 min, 1:1 throughout, subjective collected 2: Seated repeated lumbar flexion 2x10 3: seated TA activation with push into physioball 2x10 4: Standing Pallof's press with GTB 1x10 each direction. (rest in between each side) 5: Seated TA activation wtih BLE alt marching 3x10 B Skilled Intervention: Patient was educated in proper exercise technique and purpose for exercises. Skilled judgment was used in selection of appropriate interventions. Correct performance of therapeutic exercises was facilitated with verbal and visual cuing. Billing Therapeutic Exercise Treatment Minutes: 38 Skilled Treatment Time Minutes (timed and untimed codes): 38 Total Session Time (minutes): 38 Session Start Time : 8 Session Stop Time : 08 SEVERO Bro PT documented in this encounter [facility] 07-12-2023 Note HNO ID: [id number] Author: Chris Skelton PT Service: ? Author Type: Physical Therapist Type: Progress Notes Filed: 07/12/2023 9:07 AM Note Text: Episode Visit Count: 6 Therapist That Will Accept/Oversee The Plan Of Care: Chris Skelton Start of Care Date: 06/20/23 Onset Date: 06/15/23 Plan of Care Certification Date: 06/20/23 Next Certification Due Date: 07/25/23 REHABILITATION AND SPORTS THERAPY PHYSICAL THERAPY TREATMENT NOTE ASSESSMENT: Vin Crowe tolerated the session with fatigue. He demonstrated difficulty with tolerating standing TA activation with GTB pull down. Pt. Required to sit within 4 minutes of standing. The patient will continue to benefit from ongoing skilled physical therapy to progress toward set goals. PLAN FOR NEXT VISIT: continue intermittent standing TA activation exercises 1-2 sets, seated exercises to provide relief in between sets. SUBJECTIVE: No changes. Exercises feel ok. Pt. is able to walk or stand for about 5 minutes. Pain: Pain Pain Location: Back Frequency: Intermittent OBJECTIVE MEASURES WITH LEVEL OF FUNCTION: TREATMENT: Therapeutic Exercise: 1: SciFit seat 14, level 2.0, 5 min, 1:1 throughout, subjective collected 2: SKC each knee 3x30 sec (pt. requires use of wedge to elevated the head and shoulders) 3: seated lumbar flexion with 85 cm 2x10 4: seated TA activation with push into physioball 2x10 5: Hooklying TA activation with push into physioball 1x10, 10 sec hold 6: standing TA activation with GTB 2x12 (unable to continue standing during 2nd set and sat down <5 min of standing) 7: seated lumbar flexion 2x10 Skilled Intervention: Patient was educated in proper exercise technique and purpose for exercises. Skilled judgment was used in selection of appropriate interventions. Correct performance of therapeutic exercises was facilitated with verbal, visual, and tactile cuing. Educated patient on rationale for performing exercises in regards to decreasing fatigue , increase ease of ADL, and ROM and function . Patient education as noted. Billing Therapeutic Exercise Treatment Minutes: 40 Skilled Treatment Time Minutes (timed and untimed codes): 40 Total Session Time (minutes): 40 Session Start Time : 833 Session Stop Time : 913 Chris Skelton PT [facility] 07-09-2023 Note HNO ID: [id number] Author: Sterling Powell PT Service: ? Author Type: Physical Therapist Type: Progress Notes Filed: 07/09/2023 9:28 AM Note Text: Episode Visit Count: 5 Therapist That Will Accept/Oversee The Plan Of Care: Chris Skelton Start of Care Date: 06/20/23 Onset Date: 06/15/23 Plan of Care Certification Date: 06/20/23 Next Certification Due Date: 07/25/23 Patient Identified by Name and Date of : Yes REHABILITATION AND SPORTS THERAPY PHYSICAL THERAPY TREATMENT NOTE ASSESSMENT: Vin Crowe tolerated the session with fatigue and no issues. He demonstrated difficulty with hooklying TA activation with push into physioball due to fatigue. The patient will continue to benefit from ongoing skilled physical therapy to progress toward set goals. PLAN FOR NEXT VISIT: Continue with seated core strengthening. Consider stir the Pot SUBJECTIVE: Pt reports that his back is feeling the same as always, no change. Pain: Pain Pain Level: 0 Pain Location: Back Frequency: Intermittent Post Treatment Pain Post Treatment Pain Level: No Change Post Treatment Pain Location: Back OBJECTIVE MEASURES WITH LEVEL OF FUNCTION: Good seated posture noted. TREATMENT: Therapeutic Exercise: 1: repeated lumbar flexion 2x10 2: SKC each knee 3x30 sec 3: hooklying TA activation 2x10 4: Hooklying TA activation with push into physioball 2x10 5: Seated TA activation 2x10 with 2-3 second holds 6: Seated Pallof's press with GTB 2x10 each direction. 7: Seated TA activation with alt marching 4 x 5 B Skilled Intervention: Patient was educated in proper exercise technique and purpose for exercises. Skilled judgment was used in selection of appropriate interventions. Correct performance of therapeutic exercises was facilitated with verbal and visual cuing. Billing Therapeutic Exercise Treatment Minutes: 40 Skilled Treatment Time Minutes (timed and untimed codes): 40 Total Session Time (minutes): 40 Session Start Time : 0759 Session Stop Time : 0839 Farhana Washington, SQL PROGRAMMER Sterling Powell, PT [facility] 07-09-2023 History of Present illness Narrative Episode Visit Count: 5 Therapist That Will Accept/Oversee The Plan Of Care: Chris Skelton Start of Care Date: 06/20/23 Onset Date: 06/15/23 Plan of Care Certification Date: 06/20/23 Next Certification Due Date: 07/25/23 Patient Identified by Name and Date of : Yes REHABILITATION AND SPORTS THERAPY PHYSICAL THERAPY TREATMENT NOTE ASSESSMENT: Vin Crowe tolerated the session with fatigue and no issues. He demonstrated difficulty with hooklying TA activation with push into physioball due to fatigue. The patient will continue to benefit from ongoing skilled physical therapy to progress toward set goals. PLAN FOR NEXT VISIT: Continue with seated core strengthening. Consider stir the Pot SUBJECTIVE: Pt reports that his back is feeling the same as always, no change. Pain: Pain Pain Level: 0 Pain Location: Back Frequency: Intermittent Post Treatment Pain Post Treatment Pain Level: No Change Post Treatment Pain Location: Back OBJECTIVE MEASURES WITH LEVEL OF FUNCTION: Good seated posture noted. TREATMENT: Therapeutic Exercise: 1: repeated lumbar flexion 2x10 2: SKC each knee 3x30 sec 3: hooklying TA activation 2x10 4: Hooklying TA activation with push into physioball 2x10 5: Seated TA activation 2x10 with 2-3 second holds 6: Seated Pallof's press with GTB 2x10 each direction. 7: Seated TA activation with alt marching 4 x 5 B Skilled Intervention: Patient was educated in proper exercise technique and purpose for exercises. Skilled judgment was used in selection of appropriate interventions. Correct performance of therapeutic exercises was facilitated with verbal and visual cuing. Billing Therapeutic Exercise Treatment Minutes: 40 Skilled Treatment Time Minutes (timed and untimed codes): 40 Total Session Time (minutes): 40 Session Start Time : 0759 Session Stop Time : 0839 Farhana Washington, SEVERO Powell PT documented in this encounter [facility] 07-06-2023 Note HNO ID: [id number] Author: Chris Skelotn PT Service: ? Author Type: Physical Therapist Type: Progress Notes Filed: 07/06/2023 8:43 AM Note Text: Episode Visit Count: 4 Therapist That Will Accept/Oversee The Plan Of Care: Chris Skelton Start of Care Date: 06/20/23 Onset Date: 06/15/23 Plan of Care Certification Date: 06/20/23 Next Certification Due Date: 07/25/23 Patient Identified by Name and Date of : Yes REHABILITATION AND SPORTS THERAPY PHYSICAL THERAPY TREATMENT NOTE ASSESSMENT: Vin Crowe tolerated the session with fatigue and expected muscle soreness. He demonstrated difficulty with standing core stabilization strengthening. The patient will continue to benefit from ongoing skilled physical therapy to progress toward set goals. PLAN FOR NEXT VISIT: Continue with hooklying and seated TA activation exerciess as standing increased pt's pain. SUBJECTIVE: Pt reports that his back is hurting today, no new symptoms. Pt reports that he went ot pain management yesterday and they are going to start injections in his back. Pain: Pain Pain Level: 0 (with sitting doesn't hurt, increases to 8/10 with walking.) Pain Location: Back Description: Aching Frequency: Intermittent Post Treatment Pain Post Treatment Symptoms: Pain increased with standing exercise, but subsided with rest and lumbar flexion seated OBJECTIVE MEASURES WITH LEVEL OF FUNCTION: TREATMENT: Therapeutic Exercise: 1: repeated lumbar flexion 2x10 2: SKC each knee 3x30 sec 3: hooklying TA activation 2x10 4: hook lying TA activation with alt marches 3x30 sec (wedge at head) 5: hook lying TA activation alt bent knee fall outs 3x30 sec 6: Standing Pallof's press with GTB 2x10 each direction 7: Seated TA activation 2x10 with 2-3 second holds 8: Sit to stand from elevated table surface 1x10 with pushing on knees with UE Skilled Intervention: Patient was educated in proper exercise technique and purpose for exercises. Skilled judgment was used in selection of appropriate interventions. Correct performance of therapeutic exercises was facilitated with verbal and visual cuing. Billing Therapeutic Exercise Treatment Minutes: 40 Skilled Treatment Time Minutes (timed and untimed codes): 40 Total Session Time (minutes): 40 Session Start Time : 757 Session Stop Time : 837 Farhana Washington, SEVERO Skelton, PT [facility] 07-06-2023 History of Present illness Narrative Episode Visit Count: 4 Therapist That Will Accept/Oversee The Plan Of Care: Chris Skelton Start of Care Date: 06/20/23 Onset Date: 06/15/23 Plan of Care Certification Date: 06/20/23 Next Certification Due Date: 07/25/23 Patient Identified by Name and Date of : Yes REHABILITATION AND SPORTS THERAPY PHYSICAL THERAPY TREATMENT NOTE ASSESSMENT: Vin Crowe tolerated the session with fatigue and expected muscle soreness. He demonstrated difficulty with standing core stabilization strengthening. The patient will continue to benefit from ongoing skilled physical therapy to progress toward set goals. PLAN FOR NEXT VISIT: Continue with hooklying and seated TA activation exerciess as standing increased pt's pain. SUBJECTIVE: Pt reports that his back is hurting today, no new symptoms. Pt reports that he went ot pain management yesterday and they are going to start injections in his back. Pain: Pain Pain Level: 0 (with sitting doesn't hurt, increases to 8/10 with walking.) Pain Location: Back Description: Aching Frequency: Intermittent Post Treatment Pain Post Treatment Symptoms: Pain increased with standing exercise, but subsided with rest and lumbar flexion seated OBJECTIVE MEASURES WITH LEVEL OF FUNCTION: TREATMENT: Therapeutic Exercise: 1: repeated lumbar flexion 2x10 2: SKC each knee 3x30 sec 3: hooklying TA activation 2x10 4: hook lying TA activation with alt marches 3x30 sec (wedge at head) 5: hook lying TA activation alt bent knee fall outs 3x30 sec 6: Standing Pallof's press with GTB 2x10 each direction 7: Seated TA activation 2x10 with 2-3 second holds 8: Sit to stand from elevated table surface 1x10 with pushing on knees with UE Skilled Intervention: Patient was educated in proper exercise technique and purpose for exercises. Skilled judgment was used in selection of appropriate interventions. Correct performance of therapeutic exercises was facilitated with verbal and visual cuing. Billing Therapeutic Exercise Treatment Minutes: 40 Skilled Treatment Time Minutes (timed and untimed codes): 40 Total Session Time (minutes): 40 Session Start Time : 757 Session Stop Time : 837 SEVERO Bro PT documented in this encounter [facility] 07-03-2023 Note HNO ID: [id number] Author: Chris Skelton PT Service: ? Author Type: Physical Therapist Type: Progress Notes Filed: 07/03/2023 11:46 AM Note Text: Episode Visit Count: 3 Therapist That Will Accept/Oversee The Plan Of Care: Chris Skelton Start of Care Date: 06/20/23 Onset Date: 06/15/23 Plan of Care Certification Date: 06/20/23 Next Certification Due Date: 07/25/23 REHABILITATION AND SPORTS THERAPY PHYSICAL THERAPY TREATMENT NOTE ASSESSMENT: Vin Crowe tolerated the session with decreased symptoms. He demonstrated improvements in BLE symptoms reported, but continues to report limited tolerance with prolonged standing and walking. The patient will continue to benefit from ongoing skilled physical therapy to progress toward set goals. PLAN FOR NEXT VISIT: assess symptom response to standing core stabilization strengthening exercises, determine if pt. can tolerate >10 min. modify to seated position as appropriate SUBJECTIVE: Pt. can now raises his leg. Pt. continues to have pain across the low back. Pt. reports that the exercises only help the pinched nerve pain but not the chronic back pain. When asked to clarify what he means, he states that he still cant walk or stand a long time, but he has no pain with sitting or completing the exercises. Cant tolerated >10 min of standing or walking due to increased back pain to 8/10. He denies having any trouble with his legs. Denies feeling that they will go out as compared to initial evaluation. Pain: Pain Pain Level: 2 Pain Location: Back Description: Aching Frequency: Intermittent Post Treatment Pain Post Treatment Pain Level: Better Post Treatment Pain Location: Back OBJECTIVE MEASURES WITH LEVEL OF FUNCTION: TREATMENT: Therapeutic Exercise: 1: repeated lumbar flexion 2x10 2: *SKC each knee 3x30 sec 3: seated TA activation pushing down on 55 cm physioball 3x15, 2-3 sec hold each 4: hooklying TA activation 2x10 (wedge at head) 5: hook lying TA activation 2x5, 10 sec hold 6: hook lying TA activation with alt marches 3x30 sec 7: hook lying TA activation alt bent knee fall outs 3x30 sec (cue to only ER the R hip within a pain free ROM for the R hip) 8: sit <> stands 2x3 (cues to activate the core and to complete slowly. pt. uses BUE at armrests .) Skilled Intervention: Patient was educated in proper exercise technique and purpose for exercises. Reviewed and educated patient on additions/changes for home exercise program as above (*). Skilled judgment was used in selection of appropriate interventions. Correct performance of therapeutic exercises was facilitated with verbal and visual cuing. Educated patient on rationale for performing exercises in regards to decreasing fatigue , increase ease of ADL, and ROM and function . Patient education as noted. Self-Fpc Management: 1: discussed goal of core stabilization strengthening to improve tolerance with standing/walking duration. Pt. may not become pain free but the goal is to optimize mobility and prevent further functional decline. Skilled Intervention: Skilled judgment in the selection of proper modification for activity of daily living/home management based on clinical presentation, deficits, and needs. Reviewed patient specific diagnosis in relation to activities of daily living/home management. Activity progression based on professional judgement. Reviewed and educated patient on additions/changes for home program as noted above with an (*). Billing Therapeutic Exercise Treatment Minutes: 35 Self-Care/Home Management Treatment Minutes: 5 Total Session Time (minutes): 40 Session Start Time : 1107 Session Stop Time : 1147 Chris Skelton, PT [facility] 07-03-2023 History of Present illness Narrative Episode Visit Count: 3 Therapist That Will Accept/Oversee The Plan Of Care: Chris Skelton Start of Care Date: 06/20/23 Onset Date: 06/15/23 Plan of Care Certification Date: 06/20/23 Next Certification Due Date: 07/25/23 REHABILITATION AND SPORTS THERAPY PHYSICAL THERAPY TREATMENT NOTE ASSESSMENT: Vin Crowe tolerated the session with decreased symptoms. He demonstrated improvements in BLE symptoms reported, but continues to report limited tolerance with prolonged standing and walking. The patient will continue to benefit from ongoing skilled physical therapy to progress toward set goals. PLAN FOR NEXT VISIT: assess symptom response to standing core stabilization strengthening exercises, determine if pt. can tolerate >10 min. modify to seated position as appropriate SUBJECTIVE: Pt. can now raises his leg. Pt. continues to have pain across the low back. Pt. reports that the exercises only help the pinched nerve pain but not the chronic back pain. When asked to clarify what he means, he states that he still cant walk or stand a long time, but he has no pain with sitting or completing the exercises. Cant tolerated >10 min of standing or walking due to increased back pain to 8/10. He denies having any trouble with his legs. Denies feeling that they will go out as compared to initial evaluation. Pain: Pain Pain Level: 2 Pain Location: Back Description: Aching Frequency: Intermittent Post Treatment Pain Post Treatment Pain Level: Better Post Treatment Pain Location: Back OBJECTIVE MEASURES WITH LEVEL OF FUNCTION: TREATMENT: Therapeutic Exercise: 1: repeated lumbar flexion 2x10 2: *SKC each knee 3x30 sec 3: seated TA activation pushing down on 55 cm physioball 3x15, 2-3 sec hold each 4: hooklying TA activation 2x10 (wedge at head) 5: hook lying TA activation 2x5, 10 sec hold 6: hook lying TA activation with alt marches 3x30 sec 7: hook lying TA activation alt bent knee fall outs 3x30 sec (cue to only ER the R hip within a pain free ROM for the R hip) 8: sit <> stands 2x3 (cues to activate the core and to complete slowly. pt. uses BUE at armrests .) Skilled Intervention: Patient was educated in proper exercise technique and purpose for exercises. Reviewed and educated patient on additions/changes for home exercise program as above (*). Skilled judgment was used in selection of appropriate interventions. Correct performance of therapeutic exercises was facilitated with verbal and visual cuing. Educated patient on rationale for performing exercises in regards to decreasing fatigue , increase ease of ADL, and ROM and function . Patient education as noted. Self-Fpc Management: 1: discussed goal of core stabilization strengthening to improve tolerance with standing/walking duration. Pt. may not become pain free but the goal is to optimize mobility and prevent further functional decline. Skilled Intervention: Skilled judgment in the selection of proper modification for activity of daily living/home management based on clinical presentation, deficits, and needs. Reviewed patient specific diagnosis in relation to activities of daily living/home management. Activity progression based on professional judgement. Reviewed and educated patient on additions/changes for home program as noted above with an (*). Billing Therapeutic Exercise Treatment Minutes: 35 Self-Care/Home Management Treatment Minutes: 5 Total Session Time (minutes): 40 Session Start Time : 1107 Session Stop Time : 1147 Chris Skelton PT documented in this encounter [facility] 06-25-2023 Note HNO ID: [id number] Author: Chris Skelton PT Service: ? Author Type: Physical Therapist Type: Progress Notes Filed: 06/25/2023 8:47 AM Note Text: Episode Visit Count: 2 Therapist That Will Accept/Oversee The Plan Of Care: Chris Skelton Start of Care Date: 06/20/23 Onset Date: 06/15/23 Plan of Care Certification Date: 06/20/23 Next Certification Due Date: 07/25/23 Patient Identified by Name and Date of : Yes REHABILITATION AND SPORTS THERAPY PHYSICAL THERAPY TREATMENT NOTE ASSESSMENT: Vin Crowe tolerated the session with decreased symptoms. He demonstrated improvements in endurance with core stabilization with decrease in pain.. The patient will continue to benefit from ongoing skilled physical therapy to progress toward set goals. PLAN FOR NEXT VISIT: Continue with core strengthening with flexion directional preference. SUBJECTIVE: Pt reports that the exercises helped with his chronic pain. Pt states having pain still across his low back. Pain: Pain Pain Level: 3 Pain Location: Back Description: Aching (sharp with standing and walking) Frequency: Intermittent Post Treatment Pain Post Treatment Pain Level: 0 Post Treatment Pain Location: Back OBJECTIVE MEASURES WITH LEVEL OF FUNCTION: Increased kyphosis with sitting edge of bed. TREATMENT: Therapeutic Exercise: 1: Repeated lumbar flexion in seated 1x10 2: *SKC each knee 3x30 sec 3: TA activation in supine 3x10 4: TA activation in hooklying with alt marching 2x10 B 5: Gentle PROM piriformis stretching 3x20 seconds B 6: Seated TA activation 2x10 with 2-3 second holds Skilled Intervention: Patient was educated in proper exercise technique and purpose for exercises. Skilled judgment was used in selection of appropriate interventions. Correct performance of therapeutic exercises was facilitated with verbal and visual cuing. Billing Therapeutic Exercise Treatment Minutes: 39 Skilled Treatment Time Minutes (timed and untimed codes): 39 Total Session Time (minutes): 39 Session Start Time : 0800 Session Stop Time : 0839 SEVERO Bro, JAMIE [facility] 06-20-2023 Note HNO ID: [id number] Author: Chris Skelton PT Service: ? 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 He presents with impairments in ADL's, balance, flexibility, gait, independence in exercise, joint mobility, overall function, posture, strength, and symptom management. PROMIS? (Patient-Reported Outcomes Measurement Information System) scores were reviewed and self efficacy domain identified as a rehabilitation concern. Prognosis for therapy is Fair due to: clinical presentation, advanced age, chronic nature of impairments . He will benefit from skilled therapy services to meet the goals established for this plan of care as noted below. Goals for Episode of Care: created on 06/20/23 through 08/01/23 [place] in home exercise program. Patient will decrease pain rating by 2 points to meet minimal clinical important difference for numeric pain rating scale. Perform sit to stand and bed transfers with decreased report of symptoms/pain in 6 weeks. Perform 10 min of standing activities with decreased pain. Patient Goals: pt. wants to reduce pain Planned Interventions, Frequency, and Duration: Current Frequency: 2x/week Duration: 6 weeks Total Number of Visits Planned: 12 Planned Treatment Interventions: Therapeutic exercise (29373), Neuromuscular re-education (12124), Manual therapy (80306), Therapeutic activities (06328), Self-mcc management (13762) PLAN FOR NEXT VISIT: assess symptom response to flexion directional preference. Patient demonstrates good understanding of plan of care and treatment. The above goals and plan of care were discussed and agreed upon by patient/family. SUBJECTIVE: pt presents with LBP that increased this past week. pt has history of multiple spinal fusions. Symptoms are most bothersome in weight bearing an during transitional movements. LBP has always been presents but has been exaserbated this past week. Feels like legs are going to give out. Patient Goals: pt. wants to reduce pain Functional Limitations: walking, walking in the house, walking in the community, bending, stair negotiation, rising from a chair, bed mobility, carrying, weight bearing Prior Level of Function: Independent without limitations Relevant History Past Relevant Medical Conditions: Diabetes, Hypertension Employment: Retired Hobbies / Interests: Mowing the lawn. Home Environment Home Type: [place] Entry To Home: Stairs Number Of Stairs Into Home: 2 Intake Information: Prescription present Previous Treatment: Pain meds Falls Interview: No positive findings with falls interview Red Flags Vertebral Fracture Clinical Reasoning: No identified risk factors Abdominal Aortic Aneurysm Clinical Reasoning: No identified risk factors. Cancer Clinical Reasoning: No identified risk factors. Infection Clinical Reasoning: No identified risk factors. Cauda Equina Syndrome Clinical Reasoning: No identified risk factors. Red Flags - Cervical Cancer Clinical Reasoning: No identified risk factors. Infection Clinical Reasoning: No identified risk factors. Spine History Symptoms Location at Onset: Back Symptoms Since Onset: Unchanging Pain is Worse Always: Prolonged positions, On the Move, Walking, Standing Pain is Better Always: Lying, Sitting Pain: Pain Pain Level: 4 Pain Location: Back Description: Aching Post Treatment Pain Post Treatment Pain Level: No Change Post Treatment Pain Location: Back PROMIS Scales Higher is Better 06/20/2023 Phys Func - Score 46 (within normal limits) Phys Func - Percentile 34 % Self-Eff Symptom - Score 37 (Low) Self-Eff Symptom - Percentile 10 % T-scores: mean of general population = 50. 5 points is clinically meaningfully difference Percentiles provide an indication of how the patient's score ranks in relation to the general population. Higher percentile rankings indicate better function/quality of life. 50th percentile is the average of the general population and indicates half of respondents had a worse score. OBJECTIVE MEASURES WITH LEVEL OF FUNCTION: Posture / Alignment Posture: Increased thoracic kyphosis, Forward head, Rounded shoulders Sensation - Lumbar Sensation: Grossly Intact Lumbar Spine AROM [place] (more content not included)... 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 He presents with impairments in ADL's, balance, flexibility, gait, independence in exercise, joint mobility, overall function, posture, strength, and symptom management. PROMIS (Patient-Reported Outcomes Measurement Information System) scores were reviewed and self efficacy domain identified as a rehabilitation concern. Prognosis for therapy is Fair due to: clinical presentation, advanced age, chronic nature of impairments . He will benefit from skilled therapy services to meet the goals established for this plan of care as noted below. Goals for Episode of Care: created on 06/20/23 through 08/01/23 [place] in home exercise program. Patient will decrease pain rating by 2 points to meet minimal clinical important difference for numeric pain rating scale. Perform sit to stand and bed transfers with decreased report of symptoms/pain in 6 weeks. Perform 10 min of standing activities with decreased pain. Patient Goals: pt. wants to reduce pain Planned Interventions, Frequency, and Duration: Current Frequency: 2x/week Duration: 6 weeks Total Number of Visits Planned: 12 Planned Treatment Interventions: Therapeutic exercise (10470), Neuromuscular re-education (94895), Manual therapy (49176), Therapeutic activities (86466), Self-mcc management (04915) PLAN FOR NEXT VISIT: assess symptom response to flexion directional preference. Patient demonstrates good understanding of plan of care and treatment. The above goals and plan of care were discussed and agreed upon by patient/family. SUBJECTIVE: pt presents with LBP that increased this past week. pt has history of multiple spinal fusions. Symptoms are most bothersome in weight bearing an during transitional movements. LBP has always been presents but has been exaserbated this past week. Feels like legs are going to give out. Patient Goals: pt. wants to reduce pain Functional Limitations: walking, walking in the house, walking in the community, bending, stair negotiation, rising from a chair, bed mobility, carrying, weight bearing Prior Level of Function: Independent without limitations Relevant History Past Relevant Medical Conditions: Diabetes, Hypertension Employment: Retired Hobbies / Interests: Mowing the [employer]. Home Environment Home Type: [place] Entry To Home: Stairs Number Of Stairs Into Home: 2 Intake Information: Prescription present Previous Treatment: Pain meds Falls Interview: No positive findings with falls interview Red Flags Vertebral Fracture Clinical Reasoning: No identified risk factors Abdominal Aortic Aneurysm Clinical Reasoning: No identified risk factors. Cancer Clinical Reasoning: No identified risk factors. Infection Clinical Reasoning: No identified risk factors. Cauda Equina Syndrome Clinical Reasoning: No identified risk factors. Red Flags - Cervical Cancer Clinical Reasoning: No identified risk factors. Infection Clinical Reasoning: No identified risk factors. Spine History Symptoms Location at Onset: Back Symptoms Since Onset: Unchanging Pain is Worse Always: Prolonged positions, On the Move, Walking, Standing Pain is Better Always: Lying, Sitting Pain: Pain Pain Level: 4 Pain Location: Back Description: Aching Post Treatment Pain Post Treatment Pain Level: No Change Post Treatment Pain Location: Back PROMIS Scales Higher is Better 06/20/2023 Phys Func - Score 46 (within normal limits) Phys Func - Percentile 34 % Self-Eff Symptom - Score 37 (Low) Self-Eff Symptom - Percentile 10 % T-scores: mean of general population = 50. 5 points is clinically meaningfully difference Percentiles provide an indication of how the patient's score ranks in relation to the general population. Higher percentile rankings indicate better function/quality of life. 50th percentile is the average of the general population and indicates half of respondents had a worse score. OBJECTIVE MEASURES WITH LEVEL OF FUNCTION: Posture / Alignment Posture: Increased thoracic kyphosis, Forward head, Rounded shoulders Sensation - Lumbar Sensation: Grossly Intact Lumbar Spine AROM Lumbar Flexion: Normal (pain returning to neutral) Lumbar Extension: Major limitation, Pain during movement Lumbar R Side Rutledge: Normal Lumbar L Side Rutledge: Normal Lumbar R Side-Bend: Moderate limitation Lumbar L Side-Bend: Moderate limitation Lumbar R Rotation: Minimal limitation Lumbar L Rotation: Minimal limitation Repeated Test Movements - Lumbar RFIS - Symptoms During: decreases RFIS - Symptoms After: no effect RFIL - Symptoms During: decreases RFIL - Symptoms After: no effect Education: Education Learning Preferences: Demonstration, Explanation, Performance, Printed Materials Barriers: None Learning/educational needs: Health promotion, Home exercise program, Plan of Care, Changes in Plan of Care Education Provided: Yes, see treatment interventions for education provided Education Provided To: Patient Education Mode/Type: Demonstration, Literature/Printed Materials, Explanation/Discussion Response to Education/Teach Back: States/Identifies, Return Demonstration TREATMENT: PT Treatment Interventions: Therapeutic Exercise, Self-Fpc Management Evaluation Therapeutic Exercise: 1: *Repeated lumbar flexion in seated 2x10 2: lumbar extension, flexion, BL side bend, BL rotation, BL side glide x1 3: *SKC each knee 3x30 sec 4: *TA activation in supine 3x10 5: *TA activation in sitting Skilled Intervention: Patient was educated in proper exercise technique and purpose for exercises. Reviewed and educated patient on additions/changes for home exercise program as above (*). Skilled judgment was used in selection of appropriate interventions. Provided written instruction for home exercise program to facilitate proper performance and compliance. Correct performance of therapeutic exercises was facilitated with verbal and visual cuing. Patient education as noted. Self-Fpc Management: 1: *discussed how compression of nerve roots can cause low back pain to peripheralize. 2: *discussed how repeated flexion exercises can be used to increase forminal space and decrease the intensity of LBP 3: *discussed log roll technique for getting out of bed Skilled Intervention: Skilled judgment in the selection of proper modification for activity of daily living/home management based on clinical presentation, deficits, and needs. Reviewed patient specific diagnosis in relation to activities of daily living/home management. Activity progression based on professional judgement. Billing * Evaluation Low Complexity: 1 Unit Therapeutic Exercise Treatment Minutes: 15 Self-Care/Home Management Treatment Minutes: 10 Skilled Treatment Time Minutes (timed and untimed codes): 45 Total Session Time (minutes): 45 Session Start Time : 0815 Session Stop Time : 0900 ARIAN Platt documented in this encounter [facility] Work Phone: Evaluation noteThere may be information available, but it has not been provided by the sender.[facility] Work Phone: Evaluation note* Diagnosis Spinal stenosis, lumbar region with neurogenic claudication- Primary S/P laminectomy with spinal fusion Arthrodesis status [facility] Diagnosis Spinal stenosis, lumbar region with neurogenic claudication- Primary S/P laminectomy with spinal fusion Arthrodesis status documented [facility] Diagnosis Spinal stenosis, lumbar region with neurogenic claudication- Primary S/P laminectomy with spinal fusion Arthrodesis status documented [facility] Diagnosis Spinal stenosis, lumbar region with neurogenic claudication- Primary S/P laminectomy with spinal fusion Arthrodesis status documented [facility] Diagnosis Spinal stenosis, lumbar region with neurogenic claudication- Primary S/P laminectomy with spinal fusion Arthrodesis status documented [facility] Instruction Description Start Date Completed [facility] Work Phone: Instructions* Instruction Description Start Date Completed [facility] Work Phone: Summary Purpose Family History No Family History Records FoundNo Family History Records FoundThere may be information available, but it has not been provided by the sender.There may be information available, but it has not been provided by the sender.There may be information available, but it has not been provided by the sender.No Family History Records Found Advance Directives No Advanced Directives Records FoundNo Advanced Directives Records FoundThere may be information available, but it has not been provided by the sender.There may be information available, but it has not been provided by the sender.There may be information available, but it has not been provided by the sender.No Advanced Directives Records Found Chief Complaint Chief Complaint Description Start Date bilateral thumb hand catching Preliminary chief co mplaint data, not yet signed by the author as of Chief Complaint Description Start Date left hand pain Preliminary chief co mplaint data, not yet signed by the author as of Chief Complaint Description Start Date right hand post RELEASE TRIG NOHELIA RIGHT THUMB; XIAFLEX MANIPULATION LEFT RING AND SMALL FINGERS on 12/09/2021 Preliminary chief co mplaint data, not yet signed by the author as of Reason for Referral Specialty Diagnoses / Procedures Referred By Oliverio rojas Referred To Contact [facility] Diagnoses Spinal stenosis, lumbar region with neurogenic claudication S/P laminectomy with spinal fusion Procedures PT REHAB FOLLOW UP ORDER THERAPEUTIC EXERCISES RE, EA 15 MIN. Chris Skelton, PT [facility] [place] [address] [place] [address] Referral ID Status Reason Start Date Expiration Date Visits Requested Visits Authorized [id number] Pending Review PCP Requested Referral Auto-Generate d Referral 3 09/18/2023 1 1 Additional Source Comments (unrecognized sect ion and content) No Status Records FoundNo Status Records FoundNo Status Records Found INFORMATION SOURCE (unrecogn ized section and content) DATE CREATED AUTHOR AUTHOR'S ORGANIZ ATION 02/28/2018 [facility] Ce gabriel Arredondo DATE CREATED AUTHOR AUTHOR'S ORGANIZ ATION 07/21/2023 [facility] Reason for Visit (unrecogniz ed section and content) Reason For Visit Description Start Date Injection - scheduled Preliminary reason f or visit data, not yet signed by the author as of left hand pain Reason For Visit Description Start Date Postop - subsequent visit Preliminary reason f or visit data, not yet signed by the author as of right hand post RELEASE TRIG NOHELIA RIGHT THUMB; XIAFLEX MANIPULATION LEFT RING AND SMALL FINGERS on 12/09/2021 Reason Comments PT Eval Specialty Diagnoses / Procedures Referred By Contac t Referred To Contact Physical Therapy / PHYSICAL THERAPY Diagnoses spinal stenosis of lumbar region with neurogenic claudication L2-3 (M48.062) Status Post Laminectomy L3 S1 with spinal fusion L3-5 (Z98.1) Procedures NEW RS PT SPINE Juan David Topete, [address] [place] [address] Chris Skelton, PT Referral ID Status Reason Start Date Expiration Date Visits Re quested Visits Authorized [id number] Closed 09/10/2022 09/09/2023 1 1 Reason Comments Physical Therapy Specialty Diagnoses / Procedures Referred By Contac t Referred To Contact [facility] Diagnoses Spinal stenosis, lumbar region with neurogenic claudication S/P laminectomy with spinal fusion Procedures PT REHAB FOLLOW UP ORDER THERAPEUTIC EXERCISES RE, EA 15 MIN. Chris Skelton, PT [facility] [place] [address] [place] [address] Referral ID Status Reason Start Date Expiration Date Visits Requested Visits Authorized [id number] Authorized PCP Requested Referral Auto-Generate d Referral 3 08/21/2023 12 12 Source Comments (unrecognize d section and content) In the event this informatio n is protected by the Federal Confidentiality of Alcohol and Drug Abuse Patient Records regulations: The Federal rules restrict any use of the information to criminally investigate or prosecute any alcohol or drug abuse patient.[facility] the event this information is protected by the Federal Confidentiality of Alcohol and Drug Abuse Patient Records regulations: The Federal rules restrict any use of the information to criminally investigate or prosecute any alcohol or drug abuse patient.[facility] the event this information is protected by the Federal Confidentiality of Alcohol and Drug Abuse Patient Records regulations: The Federal rules restrict any use of the information to criminally investigate or prosecute any alcohol or drug abuse patient.[facility] the event this information is protected by the Federal Confidentiality of Alcohol and Drug Abuse Patient Records regulations: The Federal rules restrict any use of the information to criminally investigate or prosecute any alcohol or drug abuse patient.[facility] Center[facility] the event this information is protected by the Federal Confidentiality of Alcohol and Drug Abuse Patient Records regulations: The Federal rules restrict any use of the information to criminally investigate or prosecute any alcohol or drug abuse patient.[facility] Care Teams (unrecognized sec tion and content) Release Of Information Specialist Relationship Specialty Start Date End Date Keyonna Moura MD [address] [place], [place] [address] PCP - General Family [facility] 06/08/15 Release Of Information Specialist Relationship Specialty Start Date End Date Keyonna Moura MD [address] [place], [place] [address] PCP - General [facility] Medicine 06/08/15 Release Of Information Specialist Relationship Specialty Start Date End Date Keyonna Moura MD [address] [place], [place] [address] PCP - General Family Medicine 06/08/15 Release Of Information Specialist Relationship Specialty Start Date End Date Keyonna Moura MD [address] [facility] [place] [address] PCP - General Family Medicine 06/08/15 FOR RECORDS PERTAINING TO PATIENTS WHO ARE OR HAVE BEEN ENROLLED IN A CHEMICAL DEPENDENCY/SUBSTANCEABUSE PROGRAM, SOME INFORMATION MAY BE OMITTED. This clinical summary was aggregated from multiple sources. Caution should be exercised in using it in the provision of clinical care. This summary normalizes information from multiple sources, and as a consequence, information in this document may materially change the coding, format and clinical context of patient data. In addition, data may be omitted in some cases. CLINICAL DECISIONS SHOULD BE BASED ON THE PRIMARY CLINICAL RECORDS. [employer] [facility]. provides no warranty or guarantee of the accuracy or completeness of information in this document.
[2023-11-01 10:13] LABS: Hematocrit 39.8 % (40-54); Hemoglobin 12.8 g/dL (13.0-16.5); Mean Corp Hgb Conc 32.2 g/dL (32-36); Mean Corpuscular Hgb 31.4 pg (27.0-32.0); Mean Corpuscular Volume 97.5 fL (80-94); Mean Platelet Vol. 10.5 fl (6.2-12.0); Platelet Count 153 K/mm3 (150-450); RBC Distribution Width CV 15.1 % (11.6-14.6); RBC Distribution Width SD 54.2 fl (35.1-43.9); Red Blood Count 4.08 M/mm3 (4.6-6.2)
[2023-11-01 10:36] LABS: Anion Gap 4 (5-15); BUN 23 mg/dL (7-18); BUN/Creat Ratio 13.7 RATIO (10-20); Calcium,Total 9.5 mg/dL (8.5-10.1); Chloride 110 mmol/L (98-107); Cholesterol 150 mg/dL (200); Creatinine, Serum 1.68 mg/dL (0.70-1.30); EST Glomerular Filtration Rate 42 mL/min (>60); Est Glom Filt Rate - Afr Amer 51 mL/min (>60); Glucose 166 mg/dL (74-106); High Density Lipoprotein 52 mg/dL; Potassium 3.9 mmol/L (3.5-5.1); Sodium Level 139 mmol/L (136-145); Triglycerides 120 mg/dL; Uric Acid 7.3 mg/dL (3.5-7.2); Very Low Density Lipoprotein 24 mg/dL (5-40)
== END | disposition home or self-care (01) ==
LOC: MFPLAB 08:16
PROVIDERS: PCP Family Medicine; Visit Provider Family Medicine
DX: E11.22 Type 2 diabetes mellitus with diabetic chronic kidney disease (principal); E11.42 Type 2 diabetes mellitus with diabetic polyneuropathy; N18.30 Chronic kidney disease, stage 3 unspecified; M10.9 Gout, unspecified
CPT/HCPCS: 36415; 80048; 80061; 84550; 85027

== ENCOUNTER → 2024-05-01 | Outpatient (CLI) | payer MEDICARE, SELFPAY ==
[2024-05-01 10:10] LABS: Hematocrit 38.2 % (40-54); Hemoglobin 12.1 g/dL (13.0-16.5); Mean Corp Hgb Conc 31.7 g/dL (32-36); Mean Corpuscular Hgb 31.4 pg (27.0-32.0); Mean Corpuscular Volume 99.2 fL (80-94); Mean Platelet Vol. 10.4 fl (6.2-12.0); Platelet Count 156 K/mm3 (150-450); RBC Distribution Width CV 15.1 % (11.6-14.6); RBC Distribution Width SD 54.7 fl (35.1-43.9); Red Blood Count 3.85 M/mm3 (4.6-6.2); White Blood Count 4.7 K/mm3 (4.4-11.0)
[2024-05-01 10:47] LABS: Vitamin D,25 Hydroxy 34.3 ng/mL
[2024-05-01 11:40] LABS: ALB/GLOB Ratio 1.1 RATIO (0.9-2.4); AST(SGOT) 29 U/L (15-37); Alanine Aminotransfer ALT/SGPT 20 U/L (16-61); Albumin, Serum 3.8 g/dL (3.2-5.0); Alkaline Phosphatase 53 U/L (45-117); Anion Gap 8 (5-15); BUN 35 mg/dL (7-18); BUN/Creat Ratio 23.2 RATIO (10-20); Calcium,Total 9.6 mg/dL (8.5-10.1); Chloride 107 mmol/L (98-107); Cholesterol 158 mg/dL (200); Creatinine, Serum 1.51 mg/dL (0.70-1.30); EST Glomerular Filtration Rate 48 mL/min (>60); Est Glom Filt Rate - Afr Amer 58 mL/min (>60); Globulin 3.6 g/dL (2.2-4.2); Glucose 138 mg/dL (74-106); High Density Lipoprotein 55 mg/dL; Potassium 4.2 mmol/L (3.5-5.1); Protein, Total 7.4 g/dL (6.4-8.2); Sodium Level 139 mmol/L (136-145); T4 Free Direct 1.01 ng/dL (0.76-1.46); Triglycerides 118 mg/dL; Very Low Density Lipoprotein 24 mg/dL (5-40)
== END | disposition home or self-care (01) ==
LOC: MFPLAB 08:34
PROVIDERS: PCP Family Medicine; Visit Provider Family Medicine
DX: E03.9 Hypothyroidism, unspecified (principal); E11.59 Type 2 diabetes mellitus with other circulatory complications; E11.42 Type 2 diabetes mellitus with diabetic polyneuropathy; R79.89 Other specified abnormal findings of blood chemistry
CPT/HCPCS: 36415; 80053; 80061; 82306; 84439; 84443; 85027

== ENCOUNTER → 2024-11-20 | Outpatient (CLI) | payer MEDICARE, SELFPAY ==
[2024-11-20 12:36] LABS: Hematocrit 37.9 % (40-54); Hemoglobin 12.3 g/dL (13.0-16.5); Mean Corp Hgb Conc 32.5 g/dL (32-36); Mean Corpuscular Hgb 31.9 pg (27.0-32.0); Mean Corpuscular Volume 98.2 fL (80-94); Mean Platelet Vol. 10.7 fl (6.2-12.0); Platelet Count 155 K/mm3 (150-450); RBC Distribution Width CV 15.5 % (11.6-14.6); RBC Distribution Width SD 55.4 fl (35.1-43.9); Red Blood Count 3.86 M/mm3 (4.6-6.2); White Blood Count 3.9 K/mm3 (4.4-11.0)
[2024-11-20 13:21] LABS: ALB/GLOB Ratio 1.6 RATIO (0.9-2.4); AST(SGOT) 29 U/L (<=37); Alanine Aminotransfer ALT/SGPT 14 U/L (<=46); Albumin, Serum 4.3 g/dL (3.4-4.8); Alkaline Phosphatase 61 U/L (40-129); Anion Gap 13 (5-15); BUN 21 mg/dL (4-19); BUN/Creat Ratio 13.8 RATIO (10-20); Calcium,Total 9.5 mg/dL (7.6-11.0); Carbon Dioxide 23.6 mmol/L (21.0-32.0); Chloride 103 mmol/L (98-108); Cholesterol 146 mg/dL (<=200); Creatinine, Serum 1.51 mg/dL (0.70-1.20); EST Glomerular Filtration Rate 47 (>60); Globulin 2.8 g/dL (2.2-4.2); Glucose 144 mg/dL (70-99); High Density Lipoprotein 57 mg/dL; Low Density Lipoprotein Calc. 70 mg/dL; Potassium 4.3 mmol/L (3.3-5.1); Protein, Total 7.1 g/dL (5.9-8.4); Sodium Level 140 mmol/L (133-145); Total Bilirubin 0.65 mg/dL (0.00-1.30); Triglycerides 95 mg/dL; Very Low Density Lipoprotein 19 mg/dL (5-40); cholesterol:hdl ratio screen 2.57
[2024-11-20 13:57] LABS: Microalbumin,Random Urine 23.9 mg/L (NO RANGE EST.); Microalbumin:Creatinine Ratio 186.7 mg/g CRE
[2024-11-20 23:27] LABS: Iron 105 ug/dL (65-175); Uric Acid 6.7 mg/dL (3.5-7.2); Vitamin D,25 Hydroxy 13.9 ng/mL (30-100)
== END | disposition home or self-care (01) ==
LOC: MFPLAB 09:40
PROVIDERS: PCP Family Medicine; Referring Provider Family Medicine; Visit Provider Family Medicine
DX: Z00.00 Encounter for general adult medical examination without abnormal findings (principal); E11.22 Type 2 diabetes mellitus with diabetic chronic kidney disease; E11.319 Type 2 diabetes mellitus with unspecified diabetic retinopathy without macular edema; E11.42 Type 2 diabetes mellitus with diabetic polyneuropathy; N18.9 Chronic kidney disease, unspecified; M10.9 Gout, unspecified
CPT/HCPCS: 36415; 80053; 80061; 82043; 82306; 82570; 83540; 84550; 85027

== ENCOUNTER 2025-02-13 09:59 | Outpatient (CLI) | payer MEDICARE, SELFPAY ==
[2025-02-13 13:19] LABS: Vitamin D,25 Hydroxy 41.1 ng/mL (30-100)
== END 2025-02-13 23:59 | disposition home or self-care (01) ==
LOC: MFPLAB 10:01
PROVIDERS: PCP Family Medicine; Referring Provider Family Medicine; Visit Provider Family Medicine
DX: E55.9 Vitamin D deficiency, unspecified (principal)
CPT/HCPCS: 36415; 82306

== ENCOUNTER → 2025-02-19 | Outpatient (CLI) | payer MEDICARE, SELFPAY ==
[2025-02-19 18:11] LABS: Anion Gap 13 (5-15); BUN 26 mg/dL (4-19); BUN/Creat Ratio 16.9 RATIO (10-20); Calcium,Total 9.5 mg/dL (7.6-11.0); Chloride 104 mmol/L (98-108); Creatinine, Serum 1.52 mg/dL (0.70-1.20); EST Glomerular Filtration Rate 47 (>60); Glucose 191 mg/dL (70-99); PSA,Total- Diagnostic 1.77 ng/mL (0.00-4.00); Potassium 4.7 mmol/L (3.3-5.1); Sodium Level 140 mmol/L (133-145)
== END | disposition home or self-care (01) ==
LOC: MFPLAB 14:01
PROVIDERS: PCP Family Medicine; Referring Provider Family Medicine; Visit Provider Family Medicine
DX: E11.22 Type 2 diabetes mellitus with diabetic chronic kidney disease (principal); N40.0 Benign prostatic hyperplasia without lower urinary tract symptoms; N18.9 Chronic kidney disease, unspecified
CPT/HCPCS: 36415; 80048; 84153

== ENCOUNTER → 2025-07-02 | Outpatient (CLI) | payer MEDICARE, SELFPAY ==
[2025-07-02 16:41] LABS: Hematocrit 37.7 % (40-54); Hemoglobin 12.1 g/dL (13.0-16.5); Mean Corp Hgb Conc 32.1 g/dL (32-36); Mean Corpuscular Volume 98.2 fL (80-94); Mean Platelet Vol. 10.3 fl (6.2-12.0); Platelet Count 177 K/mm3 (150-450); RBC Distribution Width CV 15.4 % (11.6-14.6); RBC Distribution Width SD 55.8 fl (35.1-43.9); Red Blood Count 3.84 M/mm3 (4.6-6.2); White Blood Count 5.5 K/mm3 (4.4-11.0)
[2025-07-02 17:21] LABS: Anion Gap 14 (5-15); BUN 34 mg/dL (4-19); BUN/Creat Ratio 19.3 RATIO (10-20); Calcium,Total 9.5 mg/dL (7.6-11.0); Carbon Dioxide 22.9 mmol/L (21.0-32.0); Chloride 103 mmol/L (98-108); Glucose 251 mg/dL (70-99); Potassium 4.5 mmol/L (3.3-5.1)
== END | disposition home or self-care (01) ==
LOC: LAB 15:07
PROVIDERS: PCP Family Medicine; Referring Provider Urology; Visit Provider Urology
DX: Z01.812 Encounter for preprocedural laboratory examination (principal); Z01.818 Encounter for other preprocedural examination
CPT/HCPCS: 36415; 80048; 85027

== ENCOUNTER → 2025-07-07 | Outpatient (CLI) | payer MEDICARE, SELFPAY | END | disposition home or self-care (01) | LOC: PSN 09:33 | PROVIDERS: PCP Family Medicine; Referring Provider Urology; Visit Provider Urology | DX: Z01.810 Encounter for preprocedural cardiovascular examination (principal) | CPT/HCPCS: 93005 ==

== ENCOUNTER → 2025-08-26 | Outpatient (CLI) | payer MEDICARE, SELFPAY ==
[2025-08-26 12:49] LABS: PTHIN 38 pg/mL (11-61)
[2025-08-26 12:53] LABS: Creatinine, Urine (random) 79.00 mg/dL (39.00-259.00); Microalbumin,Random Urine < 12.0 mg/L (<20 mg/L)
[2025-08-26 13:25] LABS: AST(SGOT) 32 U/L (<=37); Alanine Aminotransfer ALT/SGPT 17 U/L (<=46); Albumin, Serum 4.3 g/dL (3.4-4.8); Alkaline Phosphatase 59 U/L (40-129); Anion Gap 11 (5-15); BUN 27 mg/dL (4-19); BUN/Creat Ratio 18.7 RATIO (10-20); Calcium,Total 9.6 mg/dL (7.6-11.0); Carbon Dioxide 22.9 mmol/L (21.0-32.0); Chloride 105 mmol/L (98-108); Cholesterol 157 mg/dL (<=200); Globulin 2.8 g/dL (2.2-4.2); Glucose 167 mg/dL (70-99); Low Density Lipoprotein Calc. 80 mg/dL; Potassium 4.4 mmol/L (3.3-5.1); Triglycerides 84 mg/dL; Very Low Density Lipoprotein 17 mg/dL (5-40); Vitamin D,25 Hydroxy 67.3 ng/mL (30-100); cholesterol:hdl ratio screen 2.58
[2025-08-26 13:40] LABS: Iron 94 ug/dL (65-175); Uric Acid 6.4 mg/dL (3.5-7.2)
== END | disposition home or self-care (01) ==
LOC: MFPLAB 10:24
PROVIDERS: PCP Family Medicine; Visit Provider Family Medicine
DX: E11.22 Type 2 diabetes mellitus with diabetic chronic kidney disease (principal); N18.30 Chronic kidney disease, stage 3 unspecified; M10.9 Gout, unspecified
CPT/HCPCS: 36415; 80053; 80061; 82043; 82306; 82570; 83540; 83970; 84550